=== PATIENT | male | born 1970 | race Caucasian/White ===

== ENCOUNTER 2017-01-01 19:14 | Emergency (ER) | payer MEDICARE, MEDICAID ==
[~2017-01-01] VITALS: Ht 175.3 cm; Wt 117.9 kg
[~2017-01-01 19:14] MED LIST: AMLO10TA2 PO; ASP81EC PO; CLON0.1T PO; LOSA100T27 PO; METF-370 PO; METO-158 PO; NITR400A5 TL; SIMV-8 PO; TRIA75TA55 PO
[2017-01-01 19:52] LABS: Basophils # (auto) 0 uL; Basophils % (auto) 0.4 % (0.0-2.0); CONDITION Y; Eosinophils # (auto) 0.4 uL; Eosinophils % (auto) 4.1 % (0.0-7.0); Hematocrit 36.4 % (41.0-53.0); Hemoglobin 12.2 g/dL (13.5-17.5); Lymphocytes % (auto) 22.6 % (10.0-50.0); Mean Corpuscular Hgb Conc. 33.5 g/dL (32.0-36.0); Mean Corpuscular Volume 86.3 fL (80.0-100.0); Mean Platelet Volume 8.1 fL (7.4-10.4); Monocytes # (auto) 0.8 uL; Monocytes % (auto) 8.6 % (0.0-12.0); Neutrophils # (auto) 5.6 uL; Neutrophils % (auto) 64.3 % (37.0-80.0); Platelet Count (auto) 291 10^3/uL (140-450); Red Cell Distribution Width 17.2 % (11.6-16.0); White Blood Cell 8.7 10^3/uL (4.4-10.8)
[2017-01-01 20:19] LABS: Albumin 3.4 g/dL (3.4-5.0); Alkaline Phosphatase 73 U/L (45-117); Anion Gap 6 (5-15); Aspartate Aminotransferase 17 U/L (15-37); BUN/Creatinine Ratio 16.7; Bilirubin, Total 0.2 mg/dL (0.2-1.0); Blood Urea Nitrogen 14 mg/dL (7-18); Calcium 8.8 mg/dL (8.5-10.1); Carbon Dioxide 26 mmol/L (21-32); Chloride 111 mmol/L (98-107); GFR African American 126 mL/min; GFR Non-African American 104 mL/min; Glucose 128 mg/dL (74-106); Potassium 3.3 mmol/L (3.5-5.1); Sodium 143 mmol/L (136-145); Total Protein 7.4 g/dL (6.4-8.2)
[2017-01-02 05:31] VITALS: BP 153/92
== END 2017-01-02 06:13 | disposition home or self-care (01) ==
LOC: EDUNIT# 19:14 → ER 19:19
DX: G40.909 Epilepsy, unspecified, not intractable, without status epilepticus (principal); I25.10 Atherosclerotic heart disease of native coronary artery without angina pectoris; I50.9 Heart failure, unspecified; E11.9 Type 2 diabetes mellitus without complications; E78.5 Hyperlipidemia, unspecified; I11.0 Hypertensive heart disease with heart failure; F17.210 Nicotine dependence, cigarettes, uncomplicated; E87.6 Hypokalemia; F19.20 Other psychoactive substance dependence, uncomplicated; Z87.442 Personal history of urinary calculi
CPT/HCPCS: 36415; 70450; 80053; 80307; 80320; 83735; 85025

== ENCOUNTER 2017-02-06 19:23 | Emergency (ER) | payer MEDICARE, MEDICAID ==
[~2017-02-06] VITALS: Ht 182.9 cm; Wt 108.9 kg
[~2017-02-06 19:23] MED LIST changes: +CITA-77 PO; +KEP500T PO
[2017-02-06] MEDS ORDERED: ACETAMINOPHEN 325 MG TAB PO ONE (20:45)
[2017-02-06 20:59] LABS: Basophils # (auto) 0 uL; Basophils % (auto) 0.4 % (0.0-2.0); CONDITION Y; Eosinophils # (auto) 0.3 uL; Hematocrit 39.3 % (41.0-53.0); Hemoglobin 12.9 g/dL (13.5-17.5); Lymphocytes # (auto) 1.8 uL; Lymphocytes % (auto) 23.8 % (10.0-50.0); Mean Corpuscular Hemoglobin 28.9 pg (28.0-32.0); Mean Corpuscular Volume 87.6 fL (80.0-100.0); Mean Platelet Volume 8.1 fL (7.4-10.4); Monocytes # (auto) 0.8 uL; Monocytes % (auto) 10.8 % (0.0-12.0); Neutrophils # (auto) 4.7 uL; Platelet Count (auto) 285 10^3/uL (140-450); Red Cell Distribution Width 13.8 % (11.6-16.0); White Blood Cell 7.6 10^3/uL (4.4-10.8)
[2017-02-06 21:18] LABS: Albumin 3.4 g/dL (3.4-5.0); BUN/Creatinine Ratio 12.3; Calcium 8.8 mg/dL (8.5-10.1); Potassium 3.7 mmol/L (3.5-5.1)
[2017-02-06 21:21] LABS: Bilirubin, Total 0.3 mg/dL (0.2-1.0); Total Protein 7.2 g/dL (6.4-8.2)
[2017-02-06 23:02] VITALS: BP 132/88
== END 2017-02-06 23:00 | disposition home or self-care (01) ==
LOC: EDBD 19:23 → ER 19:24
DX: S00.03XA Contusion of scalp, initial encounter (principal); I25.10 Atherosclerotic heart disease of native coronary artery without angina pectoris; I11.0 Hypertensive heart disease with heart failure; I50.9 Heart failure, unspecified; F17.210 Nicotine dependence, cigarettes, uncomplicated; Z86.73 Personal history of transient ischemic attack (TIA), and cerebral infarction without residual deficits; Z87.442 Personal history of urinary calculi; Z79.82 Long term (current) use of aspirin; Z79.899 Other long term (current) drug therapy; Z88.8 Allergy status to other drugs, medicaments and biological substances; Z88.6 Allergy status to analgesic agent; W07.XXXA Fall from chair, initial encounter; Y93.89 Activity, other specified; Y99.8 Other external cause status; Y92.89 Other specified places as the place of occurrence of the external cause
CPT/HCPCS: 36415; 70450; 80053; 85025; 93005

== ENCOUNTER 2017-05-05 21:21 | Emergency (ER) | payer MEDICARE, MEDICAID ==
[~2017-05-05] VITALS: Ht 182.9 cm; Wt 95.3 kg
[2017-05-05] MEDS ORDERED: SODIUM CHLORIDE 0.9% 1,000 ML IV ONE (21:55)
[2017-05-05] MEDS ORDERED: LORazepam 2MG/ML-1ML VIAL IV ONE (22:00)
[2017-05-05 22:28] LABS: Basophils # (auto) 0 uL; Basophils % (auto) 0.4 % (0.0-2.0); Eosinophils # (auto) 0.2 uL; Eosinophils % (auto) 3.1 % (0.0-7.0); Hematocrit 39.4 % (41.0-53.0); Hemoglobin 13.2 g/dL (13.5-17.5); Lymphocytes # (auto) 2.2 uL; Lymphocytes % (auto) 28.7 % (10.0-50.0); Mean Corpuscular Hemoglobin 28.9 pg (28.0-32.0); Mean Corpuscular Hgb Conc. 33.5 g/dL (32.0-36.0); Mean Corpuscular Volume 86.3 fL (80.0-100.0); Mean Platelet Volume 8.6 fL (6.9-10.8); Monocytes # (auto) 0.9 uL; Neutrophils # (auto) 4.4 uL; Neutrophils % (auto) 56.8 % (37.0-80.0); Nucleated Red Blood Cells % 0.2 %; Platelet Count (auto) 214 10^3/uL (140-450); Red Cell Distribution Width 15.7 % (11.8-14.3); White Blood Cell 7.7 10^3/uL (4.4-10.8)
[2017-05-05 22:43] LABS: INR 1.32 (0.9-1.15); Partial Thromboplastin Time 28.4 sec (22.64-33.71); Prothrombin Time 14.4 sec (9.37-12.3)
[2017-05-05 22:48] LABS: Chloride 111 mmol/L (98-107); Potassium 3.4 mmol/L (3.5-5.1); Sodium 143 mmol/L (136-145)
[2017-05-05 22:51] LABS: Albumin 3.3 g/dL (3.4-5.0); Anion Gap 8 (5-15); BUN/Creatinine Ratio 17.7; Blood Urea Nitrogen 22 mg/dL (7-18); Calcium 8.4 mg/dL (8.5-10.1); Carbon Dioxide 24 mmol/L (21-32); GFR African American 80 mL/min; GFR Non-African American 66 mL/min; Glucose 109 mg/dL (74-106); Magnesium 2.1 mg/dL (1.6-2.6)
[2017-05-05 22:59] LABS: Alkaline Phosphatase 65 U/L (45-117); Aspartate Aminotransferase 13 U/L (15-37); Bilirubin, Total 0.3 mg/dL (0.2-1.0); Total Protein 6.9 g/dL (6.4-8.2)
[2017-05-06 00:37] LABS: Urine Bilirubin Negative (Negative); Urine Blood TRACE /uL (Negative); Urine Color Yellow (Yellow); Urine Glucose Normal (Normal); Urine Ketone Negative (Negative); Urine Nitrite Negative (Negative); Urine RBC 2 /hpf (0 - 3); Urine Urobilinogen Normal (Negative); Urine pH 5.5 (5.0-8.0)
[2017-05-06 01:54] VITALS: BP 144/91
[2017-05-06] MEDS ORDERED: cefTRIAXone 1GM/50ML D5W 50 ML IV ONE ×2 (02:05→02:15)
== END 2017-05-06 02:57 | disposition home or self-care (01) ==
LOC: EDBD 21:21 → ER 21:23
DX: F09 Unspecified mental disorder due to known physiological condition (principal); E86.0 Dehydration; N39.0 Urinary tract infection, site not specified; I25.10 Atherosclerotic heart disease of native coronary artery without angina pectoris; I11.0 Hypertensive heart disease with heart failure; I50.9 Heart failure, unspecified; E11.9 Type 2 diabetes mellitus without complications; E78.5 Hyperlipidemia, unspecified; F17.210 Nicotine dependence, cigarettes, uncomplicated; Z87.442 Personal history of urinary calculi; Z90.49 Acquired absence of other specified parts of digestive tract
CPT/HCPCS: 36415; 70450; 71010; 80053; 80307; 80320; 81001; 83735; 84484; 85025; 85610; 85730; 93005; 94761; 96361; 96365; 96375; 99285; J0696; J7030

== ENCOUNTER 2019-02-03 15:07 | Emergency (ER) | payer MEDICARE, MEDICAID ==
[~2019-02-03] VITALS: Ht 177.8 cm; Wt 108.9 kg
[~2019-02-03 15:07] MED LIST changes: +AMLO10TA13 PO; -AMLO10TA2 PO; +LOSA-39 PO; -LOSA100T27 PO
[2019-02-03] MEDS ORDERED: methylPREDNISolone SOD SUCC 125 MG/2 ML VL IV ONE (16:15)
[2019-02-03 16:50] VITALS: BP 130/75
[2019-02-03 17:24] LABS: INR 1.82 (0.9-1.15)
== END 2019-02-03 17:00 | disposition home or self-care (01) ==
LOC: EDBD 15:07 → ER 15:07
DX: T63.441A Toxic effect of venom of bees, accidental (unintentional), initial encounter (principal); L29.9 Pruritus, unspecified; I25.10 Atherosclerotic heart disease of native coronary artery without angina pectoris; I11.0 Hypertensive heart disease with heart failure; I50.9 Heart failure, unspecified; Z87.442 Personal history of urinary calculi; E11.9 Type 2 diabetes mellitus without complications; E78.5 Hyperlipidemia, unspecified; Z93.1 Gastrostomy status; Z93.0 Tracheostomy status; F17.210 Nicotine dependence, cigarettes, uncomplicated; Z79.899 Other long term (current) drug therapy; Z79.82 Long term (current) use of aspirin; Z88.8 Allergy status to other drugs, medicaments and biological substances; Z91.030 Bee allergy status; Y92.89 Other specified places as the place of occurrence of the external cause
CPT/HCPCS: 93005; 96374; 99283; J2930

== ENCOUNTER 2019-07-12 21:51 | Emergency (ER) | payer MEDICARE, MEDICAID ==
[~2019-07-12] VITALS: Ht 177.8 cm; Wt 136.1 kg
[2019-07-12 23:44] LABS: Basophils # (auto) 0.1 uL; Basophils % (auto) 0.7 % (0.0-2.0); Eosinophils # (auto) 0.3 uL; Lymphocytes # (auto) 2.2 uL; Monocytes # (auto) 0.7 uL; Neutrophils # (auto) 4.1 uL; Red Blood Cells 5.01 10^6/uL (4.5-5.90); White Blood Cell 7.3 10^3/uL (4.4-10.8)
[2019-07-12 23:46] LABS: Eosinophils % (auto) 4.6 % (0.0-7.0); Hematocrit 37.8 % (41.0-53.0); Hemoglobin 12.1 g/dL (13.5-17.5); Lymphocytes % (auto) 29.6 % (10.0-50.0); Mean Corpuscular Hemoglobin 24.2 pg (28.0-32.0); Mean Corpuscular Volume 75.5 fL (80.0-100.0); Neutrophils % (auto) 56.1 % (37.0-80.0); Platelet Count (auto) 235 10^3/uL (140-450)
[2019-07-12 23:58] LABS: INR 1.84 (0.9-1.15); Partial Thromboplastin Time 33.9 sec (23.64-32.05)
[2019-07-13 00:12] LABS: Alanine Aminotransferase 32 U/L (16-61); Albumin 3.7 g/dL (3.4-5.0); Anion Gap 9 (5-15); Aspartate Aminotransferase 15 U/L (15-37); BUN/Creatinine Ratio 13.1; Blood Alcohol < 3.0 mg/dL (0-5); Blood Urea Nitrogen 16 mg/dL (7-18); Calcium 8.1 mg/dL (8.5-10.1); Carbon Dioxide 23 mmol/L (21-32); Chloride 111 mmol/L (98-107); GFR African American 81 mL/min; GFR Non-African American 67 mL/min; Glucose 142 mg/dL (74-106); Potassium 3.4 mmol/L (3.5-5.1); Sodium 143 mmol/L (136-145)
[2019-07-13 00:17] LABS: Alkaline Phosphatase 100 U/L (45-117); Bilirubin, Total 0.3 mg/dL (0.2-1.0); Total Protein 7.9 g/dL (6.4-8.2)
[2019-07-13 02:18] LABS: Amphetamine Screen, Urine NEGATIVE (NEGATIVE); Barbiturate Scree,Urine NEGATIVE (NEGATIVE); Benzodiazephine Screen, Urine NEGATIVE (NEGATIVE); Cannabinoid Screen, Urine NEGATIVE (NEGATIVE); Cocaine Screen, Urine NEGATIVE (NEGATIVE); Phencyclidine Screen, Urine NEGATIVE (NEGATIVE)
[2019-07-13 02:26] LABS: Alcohol, Urine < 3.0 mg/dL (0-5); Opiate Scree,Urine NEGATIVE (NEGATIVE); Urine Bacteria NONE SEEN /hpf (None Seen); Urine Blood 1+ /uL (Negative); Urine Specific Gravity 1.014 (1.001-1.035); Urine WBC 3 /hpf (0 - 3)
[2019-07-13 03:09] VITALS: BP 131/88
== END 2019-07-13 03:25 | disposition home or self-care (01) ==
LOC: ER 21:51 → EDBD 21:51 → ER 07-13 03:25
DX: R41.82 Altered mental status, unspecified (principal); F41.9 Anxiety disorder, unspecified; I11.0 Hypertensive heart disease with heart failure; I50.9 Heart failure, unspecified; F17.210 Nicotine dependence, cigarettes, uncomplicated; E11.9 Type 2 diabetes mellitus without complications; Z87.442 Personal history of urinary calculi; Z86.73 Personal history of transient ischemic attack (TIA), and cerebral infarction without residual deficits; Z91.030 Bee allergy status; Z91.09 Other allergy status, other than to drugs and biological substances; Z79.82 Long term (current) use of aspirin; Z79.899 Other long term (current) drug therapy
CPT/HCPCS: 36415; 70450; 71045; 80053; 80307; 80320; 81001; 83605; 84484; 85025; 85610; 85730; 87040; 87086; 87088; 87186

== ENCOUNTER 2019-11-30 15:25 | Inpatient (IN) | payer MEDICARE, MEDICAID ==
[~2019-11-30] VITALS: Ht 180.3 cm; Wt 118.3 kg
[~2019-11-30 15:25] MED LIST changes: -ASP81EC PO; +ASPI-394 PO
[2019-11-30] MEDS ORDERED: SODIUM CHLORIDE 0.9% 1,000 ML IVB ONE (15:53)
[2019-11-30 16:01] LABS: Eosinophils # (auto) 0.3 10 ^3/uL (0-0.8); Hemoglobin 12.1 g/dL (13.5-17.5); Monocytes # (auto) 0.7 10 ^3/uL (0-1.3); Nucleated Red Blood Cells % 0.1 %; Platelet Count (auto) 251 10^3/uL (140-450); White Blood Cell 7.9 10^3/uL (4.4-10.8)
[2019-11-30 16:02] LABS: Basophils # (auto) 0.1 10 ^3/uL (0-0.2); Basophils % (auto) 0.7 % (0.0-2.0); Eosinophils % (auto) 3.5 % (0.0-7.0); Lymphocytes # (auto) 1.8 10 ^3/uL (0.4-5.4); Mean Corpuscular Hemoglobin 23.9 pg (28.0-32.0); Mean Corpuscular Hgb Conc. 31.8 g/dL (32.0-36.0); Mean Corpuscular Volume 75.3 fL (80.0-100.0); Monocytes % (auto) 9.4 % (0.0-12.0); Neutrophils % (auto) 63.4 % (37.0-80.0); Red Blood Cells 5.05 10^6/uL (4.5-5.90); Red Cell Distribution Width 18.9 % (11.8-14.3)
[2019-11-30 16:14] LABS: Magnesium 2.3 mg/dL (1.6-2.6)
[2019-11-30 16:16] LABS: Albumin 3.6 g/dL (3.4-5.0); BUN/Creatinine Ratio 15.5; Calcium 8.6 mg/dL (8.5-10.1); Potassium 3.7 mmol/L (3.5-5.1)
[2019-11-30 16:19] LABS: Bilirubin, Total 0.4 mg/dL (0.2-1.0); Total Protein 7.3 g/dL (6.4-8.2)
[2019-11-30 16:24] LABS: INR 2.24 (0.9-1.15); Partial Thromboplastin Time 37.8 sec (23.64-32.05)
[2019-11-30] MEDS ORDERED: ONDANSETRON HCL 4 MG/2 ML VIAL IV PRN (21:15)
[2019-11-30] MEDS ORDERED: DEXTROSE (50%) 50ML SYRG IV PRN (21:15)
[2019-11-30] MEDS ORDERED: DOCUSATE SOD 100 MG CAP PO PRN (21:15)
[2019-11-30] MEDS ORDERED: ACETAMINOPHEN 325 MG TAB PO PRN (21:15)
[2019-11-30] MEDS: SODIUM CHLORIDE 0.9% 1,000 ML IV SCH (21:43)
--- NOTE | 2019-11-30 23:42 | NUR ---
MS admit from ER CANDICE DAVIES admitted to tele/MS after SBAR received. Patient oriented to Natalia Gómez, primary RN, unit, room, bed, and unit policies regarding patient care and visiting hours. Patient weighed by bedscale and encouraged to call if they need something. All questions and concerns addressed, patient verbalized understanding.
[2019-12-01] MEDS ORDERED: cloNIDine HCL 0.1 MG TAB PO PRN
[2019-12-01] MEDS: ACCU-CHEK COMFORT CURVE STRIP VI SCH ×5 (00:20→23:25)
[2019-12-01 01:25] LABS: Urine Bacteria NONE SEEN /hpf (None Seen); Urine Blood TRACE /uL (Negative); Urine Specific Gravity 1.013 (1.001-1.035); Urine WBC 1 /hpf (0 - 3)
--- NOTE | 2019-12-01 01:25 | NUR ---
Patient had a bowel movement, stool is hard with fresh blood, sample sent to lab for occult blood test.
[2019-12-01 05:00] VITALS: BP 142/94
[2019-12-01] MEDS: InsuLIN REG 1unit/0.01ml Soln (100units/ml) SC SCH ×5 (06:00→23:25)
[2019-12-01 06:53] LABS: Basophils # (auto) 0 10 ^3/uL (0-0.2); Basophils % (auto) 0.6 % (0.0-2.0); Eosinophils # (auto) 0.2 10 ^3/uL (0-0.8); Monocytes # (auto) 0.7 10 ^3/uL (0-1.3); Neutrophils # (auto) 4.6 10 ^3/uL (1.6-8.6); White Blood Cell 7.7 10^3/uL (4.4-10.8)
[2019-12-01 06:58] LABS: Eosinophils % (auto) 3.2 % (0.0-7.0); Hematocrit 36.8 % (41.0-53.0); Hemoglobin 11.8 g/dL (13.5-17.5); Lymphocytes # (auto) 2.1 10 ^3/uL (0.4-5.4); Lymphocytes % (auto) 27.3 % (10.0-50.0); Mean Corpuscular Hemoglobin 24.4 pg (28.0-32.0); Mean Corpuscular Hgb Conc. 32.2 g/dL (32.0-36.0); Mean Corpuscular Volume 75.8 fL (80.0-100.0); Neutrophils % (auto) 59.9 % (37.0-80.0); Platelet Count (auto) 264 10^3/uL (140-450); Red Blood Cells 4.85 10^6/uL (4.5-5.90); Red Cell Distribution Width 18.5 % (11.8-14.3)
[2019-12-01 07:15] LABS: Potassium 3.5 mmol/L (3.5-5.1)
[2019-12-01 07:36] LABS: Calcium 8.4 mg/dL (8.5-10.1)
[2019-12-01 09:00] VITALS: BP 136/82
[2019-12-01] MEDS: CITALOPRAM HYDROBR 20 MG TAB PO SCH (09:45)
[2019-12-01] MEDS: LOSARTAN POTASSIUM 50 MG TAB PO SCH (09:46)
[2019-12-01] MEDS: levETIRAcetam 500 MG TAB PO SCH ×2 (09:46→22:19)
[2019-12-01] MEDS: METOPROLOL TARTRATE 50 MG TAB PO SCH ×2 (09:47→22:20)
[2019-12-01] MEDS: TRIAMTERENE/HCTZ 75/50MG TABLET PO SCH (09:48)
[2019-12-01] MEDS: amLODIPine BESYLATE 5 MG TAB PO SCH (09:48)
[2019-12-01 12:36] VITALS: BP 141/96
--- NOTE | 2019-12-01 13:23 | NUR ---
Per dr blood patient ok to eat, [facility] SANCHEZ will see patient.
--- NOTE | 2019-12-01 13:23 | NUR ---
per Dr blood at patient's bedside if patient is cleared to go home by [facility] (GI) to follow up outpatient then call Dr. Blood.
--- NOTE | 2019-12-01 13:36 | NUR ---
Patient family member mentioned patient was on coumadin, however it is not on his med rec given by [facility] his sister, according to patients extended med history he picked up coumadin 3mg on september 11 2019. Contacted number on file to clarify, no answer and mailbox full at this time.
[2019-12-01] MEDS: SODIUM CHLORIDE 0.9% 1,000 ML IV SCH (13:42)
--- NOTE | 2019-12-01 15:09 | NUR ---
Called family to get dosage and frequency on coumadin, still no answer, voicemail box full.
--- NOTE | 2019-12-01 15:45 | NUR ---
Patient refused IV fluids. Patient stated he did not want to be connected to the machine at this time.
--- NOTE | 2019-12-01 15:52 | NUR ---
family called, password given to me by family, family was able to give dose on coumadin 6mg daily, patients medications are monitored by Chance boss
[2019-12-01] MEDS ORDERED: WARF6TAB2 PO (15:53)
[2019-12-01 16:47] VITALS: BP 134/89
--- NOTE | 2019-12-01 18:33 | NUR ---
Dr hendricks was in to see patient and discuss colonoscopy. Per Dr hendricks she spoke with patient and patient is familiar with the procedure/prep and Dr. Hendricks will do on monday.
--- NOTE | 2019-12-01 19:25 | NUR ---
Opening Shift Note Received report from Akiko LEWIS. Assumed care of patient, awake and alert. No S/S of distress/SOB or pain. Instructed on POC and to call for assist PRN, will continue to monitor for changes Q1hr and PRN.
[2019-12-01 22:00] VITALS: BP 126/86
[2019-12-01] MEDS: ATORVASTATIN 20 MG TAB PO SCH (22:19)
[2019-12-01] MEDS: HYDROcodone-ACET 5/325MG TAB PO PRN (22:19)
[2019-12-02 05:00] VITALS: BP_SYST 110; BP_SYST 139; BP_DIAS 59; BP_DIAS 88
[2019-12-02] MEDS: HYDROcodone-ACET 5/325MG TAB PO PRN ×2 (05:26→16:24)
[2019-12-02] MEDS: InsuLIN REG 1unit/0.01ml Soln (100units/ml) SC SCH ×4 (05:57→23:30)
[2019-12-02] MEDS: ACCU-CHEK COMFORT CURVE STRIP VI SCH ×4 (05:57→23:31)
[2019-12-02] MEDS: SODIUM CHLORIDE 0.9% 1,000 ML IV SCH ×2 (06:30→23:20)
[2019-12-02 09:30] VITALS: BP 123/87
[2019-12-02] MEDS: METOPROLOL TARTRATE 50 MG TAB PO SCH ×2 (10:00→21:47)
[2019-12-02] MEDS: levETIRAcetam 500 MG TAB PO SCH ×2 (10:36→21:46)
[2019-12-02] MEDS: LOSARTAN POTASSIUM 50 MG TAB PO SCH (10:36)
[2019-12-02] MEDS: CITALOPRAM HYDROBR 20 MG TAB PO SCH (10:36)
[2019-12-02] MEDS: amLODIPine BESYLATE 5 MG TAB PO SCH (10:36)
[2019-12-02] MEDS: TRIAMTERENE/HCTZ 75/50MG TABLET PO SCH (11:27)
--- NOTE | 2019-12-02 11:42 | NUR ---
ORDERS RECEIVED FOR COLONOSCOPY ON 12-03-[address] PALACIOS
[2019-12-02] MEDS ORDERED: GOLYTELY 4L KIT PO ONE (12:00)
[2019-12-02 12:57] VITALS: BP 144/91
[2019-12-02 13:10] LABS: Basophils # (auto) 0 10 ^3/uL (0-0.2); Eosinophils # (auto) 0.3 10 ^3/uL (0-0.8); Monocytes # (auto) 0.7 10 ^3/uL (0-1.3); White Blood Cell 7.9 10^3/uL (4.4-10.8)
[2019-12-02 13:12] LABS: Basophils % (auto) 0.5 % (0.0-2.0); Eosinophils % (auto) 3.4 % (0.0-7.0); Hematocrit 39.1 % (41.0-53.0); Hemoglobin 12.3 g/dL (13.5-17.5); Lymphocytes # (auto) 2.5 10 ^3/uL (0.4-5.4); Lymphocytes % (auto) 31.5 % (10.0-50.0); Mean Corpuscular Hgb Conc. 31.5 g/dL (32.0-36.0); Monocytes % (auto) 9.1 % (0.0-12.0); Neutrophils # (auto) 4.4 10 ^3/uL (1.6-8.6); Neutrophils % (auto) 55.5 % (37.0-80.0); Nucleated Red Blood Cells % 0.1 %; Platelet Count (auto) 277 10^3/uL (140-450); Red Blood Cells 5.14 10^6/uL (4.5-5.90); Red Cell Distribution Width 18.9 % (11.8-14.3)
--- NOTE | 2019-12-02 13:20 | NUR ---
BOWEL PREP INITIATED. BEDSIDE COMMODE IN PLACE. BED IN LOWEST POSITION, CALL LIGHT WITHIN REACH. WILL CONTINUE TO MONITOR.
[2019-12-02 13:25] LABS: Albumin 3.4 g/dL (3.4-5.0); BUN/Creatinine Ratio 12.3; Calcium 8.4 mg/dL (8.5-10.1); Potassium 3.6 mmol/L (3.5-5.1)
[2019-12-02 13:27] LABS: Bilirubin, Total 0.5 mg/dL (0.2-1.0); Total Protein 7.3 g/dL (6.4-8.2)
[2019-12-02 13:28] LABS: INR 1.76 (0.9-1.15)
[2019-12-02 16:51] VITALS: BP 127/95
--- NOTE | 2019-12-02 19:45 | NUR ---
assumed care, pt. awake, having his golytely slowly, as per pt. he has bm 5x, advised pt. npo after mn, no c/o pain, no sob
[2019-12-02] MEDS: ATORVASTATIN 20 MG TAB PO SCH (21:46)
[2019-12-02 22:20] VITALS: BP 127/80
[2019-12-03] MEDS: HYDROcodone-ACET 5/325MG TAB PO PRN ×2 (04:03→11:55)
[2019-12-03 05:00] VITALS: BP 133/90
[2019-12-03 05:34] LABS: Basophils # (auto) 0 10 ^3/uL (0-0.2); Eosinophils # (auto) 0.3 10 ^3/uL (0-0.8); Eosinophils % (auto) 3.4 % (0.0-7.0); Hematocrit 38.6 % (41.0-53.0); Hemoglobin 12.4 g/dL (13.5-17.5); Mean Corpuscular Hgb Conc. 32.2 g/dL (32.0-36.0); Monocytes # (auto) 0.7 10 ^3/uL (0-1.3); Nucleated Red Blood Cells % 0.1 %
[2019-12-03 05:36] LABS: Basophils % (auto) 0.5 % (0.0-2.0); Lymphocytes # (auto) 1.8 10 ^3/uL (0.4-5.4); Lymphocytes % (auto) 21.7 % (10.0-50.0); Mean Corpuscular Hemoglobin 24.3 pg (28.0-32.0); Mean Corpuscular Volume 75.6 fL (80.0-100.0); Monocytes % (auto) 8.5 % (0.0-12.0); Neutrophils # (auto) 5.4 10 ^3/uL (1.6-8.6); Neutrophils % (auto) 65.9 % (37.0-80.0); Platelet Count (auto) 269 10^3/uL (140-450); Red Blood Cells 5.11 10^6/uL (4.5-5.90); Red Cell Distribution Width 18.3 % (11.8-14.3); White Blood Cell 8.2 10^3/uL (4.4-10.8)
[2019-12-03] MEDS: InsuLIN REG 1unit/0.01ml Soln (100units/ml) SC SCH ×4 (05:38→23:21)
[2019-12-03] MEDS: ACCU-CHEK COMFORT CURVE STRIP VI SCH ×4 (05:38→23:22)
--- NOTE | 2019-12-03 05:46 | NUR ---
v/s stable, had bm several times, watery and clear, no c/o pain, not in distress.
[2019-12-03] MEDS ORDERED: MAGNESIUM CITRATE SOLUTION 300 ML BTL PO ONE (06:00)
[2019-12-03 08:44] VITALS: BP 143/95
[2019-12-03 09:04] LABS: INR 1.4 (0.9-1.15); Partial Thromboplastin Time 31.5 sec (23.64-32.05)
[2019-12-03] MEDS: METOPROLOL TARTRATE 50 MG TAB PO SCH ×2 (10:00→21:25)
[2019-12-03] MEDS: TRIAMTERENE/HCTZ 75/50MG TABLET PO SCH (10:00)
[2019-12-03] MEDS: levETIRAcetam 500 MG TAB PO SCH ×2 (10:00→21:24)
[2019-12-03] MEDS: amLODIPine BESYLATE 5 MG TAB PO SCH (10:00)
[2019-12-03] MEDS: CITALOPRAM HYDROBR 20 MG TAB PO SCH (10:00)
[2019-12-03] MEDS: LOSARTAN POTASSIUM 50 MG TAB PO SCH (10:00)
--- NOTE | 2019-12-03 10:45 | NUR ---
Dr. Marianne Hairston is at bed side discussing POC with patient. Patient verbalizes understanding.
--- NOTE | 2019-12-03 10:52 | NUR ---
Est energy needs [id number] kcal (18-20 kcal/kg BW 98.5kg) Est protein needs 78-94g (1-1.2g/kg BW 98.5kg) Will reassess prn Addendum: 12/03/19 at [address] Amended: Links added.
[2019-12-03 13:00] VITALS: BP 125/74
[2019-12-03] MEDS ORDERED: SODIUM CHLORIDE LOCK 10 ML ONE (13:32)
[2019-12-03] MEDS ORDERED: diphenhdrAMINE HCL 50 MG/1 ML VL ONE (13:32)
--- NOTE | 2019-12-03 14:35 | NUR ---
Patient transported to preop via bed, no s/s of pain/distress. Patient received by Tammy LEWIS
[2019-12-03] MEDS: MIDAZOLAM HCL 5 MG/ML-1ML VIAL ONE ×3 (15:35→15:50)
[2019-12-03] MEDS: fentaNYL CITRATE 100 MCG/2 ML VL ONE ×3 (15:35→15:45)
[2019-12-03] MEDS: SODIUM CHLORIDE 0.9% 1,000 ML IV SCH (15:42)
--- NOTE | 2019-12-03 19:30 | NUR ---
assumed care, pt. awake, eating his dinner, no c/o pain, no sob.
[2019-12-03] MEDS: ATORVASTATIN 20 MG TAB PO SCH (21:24)
[2019-12-03 22:00] VITALS: BP 103/61
[2019-12-04] MEDS: HYDROcodone-ACET 5/325MG TAB PO PRN ×2 (00:16→05:11)
[2019-12-04 05:00] VITALS: BP 137/90
[2019-12-04] MEDS: ACCU-CHEK COMFORT CURVE STRIP VI SCH ×2 (05:13→11:32)
[2019-12-04] MEDS: InsuLIN REG 1unit/0.01ml Soln (100units/ml) SC SCH ×2 (05:13→11:33)
[2019-12-04] MEDS: SODIUM CHLORIDE 0.9% 1,000 ML IV SCH (08:22)
[2019-12-04 09:00] VITALS: BP 132/84
[2019-12-04] MEDS: CITALOPRAM HYDROBR 20 MG TAB PO SCH (09:22)
[2019-12-04] MEDS: levETIRAcetam 500 MG TAB PO SCH (09:23)
[2019-12-04] MEDS: LOSARTAN POTASSIUM 50 MG TAB PO SCH (09:23)
[2019-12-04] MEDS: METOPROLOL TARTRATE 50 MG TAB PO SCH (09:23)
[2019-12-04] MEDS: TRIAMTERENE/HCTZ 75/50MG TABLET PO SCH (09:24)
[2019-12-04] MEDS: amLODIPine BESYLATE 5 MG TAB PO SCH (09:25)
[2019-12-04 10:55] VITALS: BP 132/84
--- NOTE | 2019-12-04 12:52 | NUR ---
Discharge instructions given to caregiver (sister) Denisa as ordered. Encourage to follow up with PMD as instructed. All questions and concerns addressed. Patient/ Denisa verbalized understanding. Medication reconciliation form completed and copy given to patient. IV removed with catheter intact, pressure dressing applied. Patient taken to vehicle via wheelchair with all personal belongings, accompanied by staff. No distress noted at time of departure.
== END 2019-12-04 12:40 | disposition home or self-care (01) | DRG 378 ==
LOC: EDBD 15:25 → ER 15:25 → OVERFLOW 15:26 → WEST WING 23:48
PROVIDERS: ADMIT Hospitalist; ATTEND Family Medicine
PROC: 0DBP8ZX Excision of Rectum, Via Natural or Artificial Opening Endoscopic, Diagnostic (ICD-10-PCS; principal; 2019-12-03 15:19)
DX: K92.2 Gastrointestinal hemorrhage, unspecified (principal); D68.9 Coagulation defect, unspecified; K92.1 Melena; R62.50 Unspecified lack of expected normal physiological development in childhood; D64.9 Anemia, unspecified; E78.00 Pure hypercholesterolemia, unspecified; K64.8 Other hemorrhoids; E11.9 Type 2 diabetes mellitus without complications; F17.210 Nicotine dependence, cigarettes, uncomplicated; I25.10 Atherosclerotic heart disease of native coronary artery without angina pectoris; F41.9 Anxiety disorder, unspecified; E78.5 Hyperlipidemia, unspecified; Z86.73 Personal history of transient ischemic attack (TIA), and cerebral infarction without residual deficits; Z55.8 Other problems related to education and literacy; Z88.8 Allergy status to other drugs, medicaments and biological substances; Z79.899 Other long term (current) drug therapy; Z83.3 Family history of diabetes mellitus; Z79.82 Long term (current) use of aspirin; Z90.89 Acquired absence of other organs; Z82.49 Family history of ischemic heart disease and other diseases of the circulatory system; Z82.3 Family history of stroke; D12.8 Benign neoplasm of rectum
CPT/HCPCS: 36415; 45380; 71045; 74176; 80048; 80053; 81001; 82150; 82270; 82962; 83036; 83690; 83735; 85025; 85610; 85730; 93005; G0378; J1815; J2250

== ENCOUNTER 2020-03-31 22:20 | Emergency (ER) | payer MEDICARE, MEDICAID ==
[~2020-03-31] VITALS: Ht 185.4 cm; Wt 113.4 kg
[~2020-03-31 22:20] MED LIST changes: +WARF6TAB2 PO
[2020-03-31 23:35] LABS: Basophils # (auto) 0.1 10 ^3/uL (0-0.2); Basophils % (auto) 0.7 % (0.0-2.0); Eosinophils # (auto) 0.3 10 ^3/uL (0-0.8); Eosinophils % (auto) 3.9 % (0.0-7.0); Hematocrit 35.7 % (41.0-53.0); Hemoglobin 11.1 g/dL (13.5-17.5); Lymphocytes # (auto) 2.1 10 ^3/uL (0.4-5.4); Lymphocytes % (auto) 28.9 % (10.0-50.0); Mean Corpuscular Hgb Conc. 31.2 g/dL (32.0-36.0); Mean Corpuscular Volume 73.7 fL (80.0-100.0); Monocytes # (auto) 0.7 10 ^3/uL (0-1.3); Monocytes % (auto) 9.6 % (0.0-12.0); Neutrophils # (auto) 4.1 10 ^3/uL (1.6-8.6); Neutrophils % (auto) 56.9 % (37.0-80.0); Nucleated Red Blood Cells % 0.1 %; Platelet Count (auto) 316 10^3/uL (140-450); Red Blood Cells 4.85 10^6/uL (4.5-5.90); Red Cell Distribution Width 17.8 % (11.8-14.3); White Blood Cell 7.3 10^3/uL (4.4-10.8)
[2020-03-31 23:54] LABS: Albumin 3.6 g/dL (3.4-5.0); BUN/Creatinine Ratio 14.4; Calcium 9.4 mg/dL (8.5-10.1); Magnesium 2.4 mg/dL (1.6-2.6); Potassium 3.7 mmol/L (3.5-5.1)
[2020-03-31 23:57] LABS: Bilirubin, Total 0.3 mg/dL (0.2-1.0); Total Protein 7.4 g/dL (6.4-8.2)
[2020-04-01] MEDS ORDERED: MORPHINE SULFATE 4 MG/ML SYR/VIAL IV ONE ×2 (00:30→03:15)
[2020-04-01] MEDS ORDERED: ONDANSETRON HCL 4 MG/2 ML VIAL IV ONE (00:30)
[2020-04-01 06:00] VITALS: BP 130/87
== END 2020-04-01 06:09 | disposition home or self-care (01) ==
LOC: EDBD 22:20 → ER 22:27
DX: R10.9 Unspecified abdominal pain (principal); E11.9 Type 2 diabetes mellitus without complications; I10 Essential (primary) hypertension; E78.5 Hyperlipidemia, unspecified; I25.10 Atherosclerotic heart disease of native coronary artery without angina pectoris; F17.210 Nicotine dependence, cigarettes, uncomplicated
CPT/HCPCS: 36415; 74176; 80053; 82150; 83690; 83735; 85025; 96374; 96375; 96376; 99285; J2270; J2405

== ENCOUNTER 2020-11-09 10:23 | Inpatient (IN) | payer MEDICARE, MEDICAID ==
[~2020-11-09] VITALS: Ht 175.3 cm; Wt 124.6 kg
[~2020-11-09 10:23] MED LIST changes: +AMLO-496 PO; -AMLO10TA13 PO
[2020-11-09 11:02] LABS: Eosinophils # (auto) 0 10 ^3/uL (0-0.8); Hemoglobin 11.9 g/dL (13.5-17.5); Lymphocytes # (auto) 1.5 10 ^3/uL (0.4-5.4); Mean Corpuscular Hgb Conc. 31.3 g/dL (32.0-36.0); Monocytes # (auto) 0.8 10 ^3/uL (0-1.3); Monocytes % (auto) 9.4 % (0.0-12.0); Neutrophils # (auto) 6.4 10 ^3/uL (1.6-8.6); Red Blood Cells 5.39 10^6/uL (4.5-5.90); White Blood Cell 8.8 10^3/uL (4.4-10.8)
[2020-11-09 11:04] LABS: Basophils # (auto) 0.1 10 ^3/uL (0-0.2); Basophils % (auto) 0.7 % (0.0-2.0); Eosinophils % (auto) 0.4 % (0.0-7.0); Hematocrit 38.2 % (41.0-53.0); Lymphocytes % (auto) 17.4 % (10.0-50.0); Mean Corpuscular Hemoglobin 22.2 pg (28.0-32.0); Mean Corpuscular Volume 70.9 fL (80.0-100.0); Neutrophils % (auto) 72.1 % (37.0-80.0); Nucleated Red Blood Cells % 0.1 %; Platelet Count (auto) 294 10^3/uL (140-450); Red Cell Distribution Width 19.9 % (11.8-14.3)
[2020-11-09 11:17] LABS: INR 1.69 (0.9-1.15); Partial Thromboplastin Time 31.2 sec (23.0-31.2)
[2020-11-09 11:18] LABS: Albumin 3.9 g/dL (3.4-5.0); Calcium 9.9 mg/dL (8.5-10.1); Magnesium 2.5 mg/dL (1.6-2.6); Potassium 3.3 mmol/L (3.5-5.1)
[2020-11-09 11:24] LABS: BUN/Creatinine Ratio 11.4; Bilirubin, Total 0.5 mg/dL (0.2-1.0); Total Protein 7.9 g/dL (6.4-8.2)
[2020-11-09] MEDS ORDERED: ONDANSETRON HCL 4 MG/2 ML VIAL IV PRN (13:30)
[2020-11-09] MEDS ORDERED: HYDROcodone-ACET 5/325MG TAB PO PRN (13:30)
[2020-11-09] MEDS ORDERED: hydrALAZINE HCL 20 MG/ML VL IV PRN (13:30)
[2020-11-09] MEDS ORDERED: NITROGLYCERIN 0.4 MG SL TAB SL PRN (13:30)
[2020-11-09] MEDS ORDERED: MORPHINE SULF INJ 2 MG/ML SYRINGE 1ML IV PRN ×2 (13:30)
[2020-11-09] MEDS ORDERED: ACETAMINOPHEN 500 MG TAB PO PRN (13:30)
[2020-11-09] MEDS ORDERED: ASPirin-EC 81 mg tab PO ONE (14:00)
[2020-11-09] MEDS ORDERED: LOSARTAN POTASSIUM 50 MG TAB PO ONE (14:00)
[2020-11-09] MEDS ORDERED: METOPROLOL TARTRATE 50 MG TAB PO ONE (14:00)
[2020-11-09] MEDS ORDERED: amLODIPine BESYLATE 5 MG TAB PO ONE (14:00)
[2020-11-09] MEDS ORDERED: levETIRAcetam 500 MG TAB PO ONE (14:00)
[2020-11-09] MEDS ORDERED: POTASSIUM EFFERVESENT TAB 25 MEQ PO ONE (14:00)
[2020-11-09] MEDS ORDERED: DEXTROSE (50%) 50ML SYRG IV PRN (14:00)
[2020-11-09] MEDS ORDERED: CITALOPRAM HYDROBR 20 MG TAB PO ONE (14:00)
[2020-11-09] MEDS ORDERED: FAMOTIDINE 20 MG TAB PO ONE (14:00)
[2020-11-09 15:39] VITALS: BP 141/83
[2020-11-09 17:00] VITALS: BP 146/92
[2020-11-09] MEDS: ACCU-CHEK COMFORT CURVE STRIP VI SCH ×2 (17:59→22:15)
[2020-11-09] MEDS: InsuLIN REG 1unit/0.01ml Soln (100units/ml) SC SCH ×2 (18:00→22:00)
[2020-11-09] MEDS ORDERED: METR500T PO (18:13)
[2020-11-09] MEDS ORDERED: DOXY-332 PO (18:13)
[2020-11-09] MEDS ORDERED: LEVO500T31 PO (18:13)
[2020-11-09 22:00] VITALS: BP 147/95
[2020-11-09] MEDS: ATORVASTATIN 20 MG TAB PO SCH (22:14)
[2020-11-09] MEDS: levETIRAcetam 500 MG TAB PO SCH (22:14)
[2020-11-09] MEDS: METOPROLOL TARTRATE 50 MG TAB PO SCH (22:14)
[2020-11-10 05:00] VITALS: BP 147/91
[2020-11-10 05:38] LABS: Basophils # (auto) 0 10 ^3/uL (0-0.2); Basophils % (auto) 0.6 % (0.0-2.0); Eosinophils # (auto) 0.2 10 ^3/uL (0-0.8); Lymphocytes # (auto) 1.7 10 ^3/uL (0.4-5.4); Monocytes # (auto) 0.7 10 ^3/uL (0-1.3); Nucleated Red Blood Cells % 0.1 %
[2020-11-10 05:40] LABS: Eosinophils % (auto) 2.2 % (0.0-7.0); Hemoglobin 11.8 g/dL (13.5-17.5); Lymphocytes % (auto) 24.5 % (10.0-50.0); Mean Corpuscular Hemoglobin 22.9 pg (28.0-32.0); Mean Corpuscular Hgb Conc. 31.8 g/dL (32.0-36.0); Mean Corpuscular Volume 72.1 fL (80.0-100.0); Monocytes % (auto) 9.6 % (0.0-12.0); Neutrophils # (auto) 4.4 10 ^3/uL (1.6-8.6); Neutrophils % (auto) 63.1 % (37.0-80.0); Platelet Count (auto) 270 10^3/uL (140-450); Red Blood Cells 5.13 10^6/uL (4.5-5.90); Red Cell Distribution Width 19.8 % (11.8-14.3)
[2020-11-10 05:54] LABS: Potassium 3.1 mmol/L (3.5-5.1)
[2020-11-10 06:05] LABS: BUN/Creatinine Ratio 11.1; Calcium 8.8 mg/dL (8.5-10.1)
[2020-11-10] MEDS: ACCU-CHEK COMFORT CURVE STRIP VI SCH ×4 (06:28→21:58)
[2020-11-10] MEDS: InsuLIN REG 1unit/0.01ml Soln (100units/ml) SC SCH ×4 (06:28→22:12)
[2020-11-10 08:30] VITALS: BP 132/93
[2020-11-10] MEDS: CITALOPRAM HYDROBR 20 MG TAB PO SCH (09:39)
[2020-11-10] MEDS: LOSARTAN POTASSIUM 50 MG TAB PO SCH (09:39)
[2020-11-10] MEDS: levETIRAcetam 500 MG TAB PO SCH ×2 (09:39→21:57)
[2020-11-10] MEDS: ASPirin-EC 81 mg tab PO SCH (09:39)
[2020-11-10] MEDS: FAMOTIDINE 20 MG TAB PO SCH (09:40)
[2020-11-10] MEDS: amLODIPine BESYLATE 5 MG TAB PO SCH (09:40)
[2020-11-10] MEDS ORDERED: ADENOSINE 108 MG in GIVE UN-DILUTED 0 ML IV ONE (10:00)
[2020-11-10] MEDS: METOPROLOL TARTRATE 50 MG TAB PO SCH ×2 (10:00→21:58)
[2020-11-10 12:46] VITALS: BP 147/102
[2020-11-10] MEDS ORDERED: ATROPINE SULF 0.5 MG/5ML SYR ONE (13:03)
[2020-11-10] MEDS ORDERED: DOBUTamine 1000MCG/ML 250 ML IV ONE ×2 (13:04)
[2020-11-10] MEDS: POTASSIUM EFFERVESENT TAB 25 MEQ PO SCH (15:22)
[2020-11-10 17:04] VITALS: BP 138/87
[2020-11-10] MEDS: ATORVASTATIN 20 MG TAB PO SCH (21:57)
[2020-11-10 22:25] VITALS: BP 124/86
[2020-11-11 05:19] VITALS: BP 140/96
[2020-11-11 06:07] LABS: INR 1.44 (0.9-1.15)
[2020-11-11 06:28] LABS: BUN/Creatinine Ratio 12.1; Calcium 8.2 mg/dL (8.5-10.1); Magnesium 2.6 mg/dL (1.6-2.6)
[2020-11-11] MEDS: ACCU-CHEK COMFORT CURVE STRIP VI SCH ×4 (06:53→22:00)
[2020-11-11] MEDS: InsuLIN REG 1unit/0.01ml Soln (100units/ml) SC SCH ×4 (06:54→22:00)
[2020-11-11 09:00] VITALS: BP 149/90
[2020-11-11] MEDS: METOPROLOL TARTRATE 50 MG TAB PO SCH ×2 (10:00→22:00)
[2020-11-11] MEDS: LOSARTAN POTASSIUM 50 MG TAB PO SCH (10:13)
[2020-11-11] MEDS: CITALOPRAM HYDROBR 20 MG TAB PO SCH (10:13)
[2020-11-11] MEDS: levETIRAcetam 500 MG TAB PO SCH ×2 (10:14→22:00)
[2020-11-11] MEDS: ASPirin-EC 81 mg tab PO SCH (10:14)
[2020-11-11] MEDS: POTASSIUM EFFERVESENT TAB 25 MEQ PO SCH (10:14)
[2020-11-11] MEDS: FAMOTIDINE 20 MG TAB PO SCH (10:15)
[2020-11-11] MEDS: amLODIPine BESYLATE 5 MG TAB PO SCH (10:15)
[2020-11-11 13:00] VITALS: BP 137/72
[2020-11-11] MEDS ORDERED: POTASSIUM EFFERVESENT TAB 25 MEQ PO ONE (14:00)
[2020-11-11 16:45] VITALS: BP 127/85
[2020-11-11 20:00] VITALS: BP 128/72
[2020-11-11] MEDS ORDERED: LORazepam 2MG/ML-1ML VIAL IV PRN (20:00)
[2020-11-11 21:44] VITALS: BP 128/72
[2020-11-11] MEDS: ATORVASTATIN 20 MG TAB PO SCH (22:00)
[2020-11-12 04:48] VITALS: BP 148/91
[2020-11-12] MEDS: ACCU-CHEK COMFORT CURVE STRIP VI SCH ×2 (07:00→11:30)
[2020-11-12] MEDS: InsuLIN REG 1unit/0.01ml Soln (100units/ml) SC SCH ×2 (07:00→11:30)
[2020-11-12 09:00] VITALS: BP 154/99
[2020-11-12] MEDS: ASPirin-EC 81 mg tab PO SCH (09:12)
[2020-11-12] MEDS: POTASSIUM EFFERVESENT TAB 25 MEQ PO SCH (09:13)
[2020-11-12] MEDS: METOPROLOL TARTRATE 50 MG TAB PO SCH (09:13)
[2020-11-12] MEDS: FAMOTIDINE 20 MG TAB PO SCH (09:13)
[2020-11-12] MEDS: CITALOPRAM HYDROBR 20 MG TAB PO SCH (09:14)
[2020-11-12] MEDS: levETIRAcetam 500 MG TAB PO SCH (09:14)
[2020-11-12] MEDS: amLODIPine BESYLATE 5 MG TAB PO SCH (09:14)
[2020-11-12] MEDS: LOSARTAN POTASSIUM 50 MG TAB PO SCH (09:15)
[2020-11-12 13:00] VITALS: BP 133/86
== END 2020-11-12 15:30 | disposition home health service (06) | DRG 313 ==
LOC: EDBD 10:23 → ER 10:23 → TELE 13:29 → TELE-WESTW 15:04
PROVIDERS: ADMIT Nurse Practitioner Acute Care; ATTEND Internal Medicine
DX: R07.89 Other chest pain (principal); I50.33 Acute on chronic diastolic (congestive) heart failure; G40.909 Epilepsy, unspecified, not intractable, without status epilepticus; E66.01 Morbid (severe) obesity due to excess calories; E11.65 Type 2 diabetes mellitus with hyperglycemia; E78.5 Hyperlipidemia, unspecified; F79 Unspecified intellectual disabilities; J44.9 Chronic obstructive pulmonary disease, unspecified; Z88.8 Allergy status to other drugs, medicaments and biological substances; Z20.822 Contact with and (suspected) exposure to COVID-19; Z68.33 Body mass index [BMI] 33.0-33.9, adult; I11.0 Hypertensive heart disease with heart failure; E87.6 Hypokalemia; F17.210 Nicotine dependence, cigarettes, uncomplicated; Z79.01 Long term (current) use of anticoagulants; Z79.82 Long term (current) use of aspirin; Z82.3 Family history of stroke; Z82.49 Family history of ischemic heart disease and other diseases of the circulatory system; Z83.3 Family history of diabetes mellitus; Z86.73 Personal history of transient ischemic attack (TIA), and cerebral infarction without residual deficits; Z79.84 Long term (current) use of oral hypoglycemic drugs; Z79.899 Other long term (current) drug therapy
CPT/HCPCS: 36415; 71045; 78452; 80048; 80053; 80061; 82962; 83036; 83735; 83880; 84443; 84484; 85025; 85610; 85730; 86141; 87426; 93005; 93017; 93306; G0378; J0153; J0461; J1815

== ENCOUNTER 2020-11-26 15:33 | Emergency (ER) | payer MEDICARE, MEDICAID ==
[~2020-11-26] VITALS: Ht 175.3 cm; Wt 126.3 kg
[~2020-11-26 15:33] MED LIST changes: +DOXY-332 PO; +LEVO500T31 PO; +METR500T PO
[2020-11-26 15:38] VITALS: BP 123/100
[2020-11-26] MEDS ORDERED: KETOROLAC TROMETH 60MG/2ML VIAL IM ONE (18:30)
== END 2020-11-26 18:32 | disposition home or self-care (01) ==
LOC: ER 15:33
DX: S83.91XA Sprain of unspecified site of right knee, initial encounter (principal); S76.012A Strain of muscle, fascia and tendon of left hip, initial encounter; J44.9 Chronic obstructive pulmonary disease, unspecified; E11.9 Type 2 diabetes mellitus without complications; E78.5 Hyperlipidemia, unspecified; I10 Essential (primary) hypertension; Z88.6 Allergy status to analgesic agent; W18.00XA Striking against unspecified object with subsequent fall, initial encounter; Y93.01 Activity, walking, marching and hiking; Y92.89 Other specified places as the place of occurrence of the external cause; Y99.8 Other external cause status
CPT/HCPCS: 29505; 73502; 73562; 96372; 99284; J1885

== ENCOUNTER 2020-12-30 19:00 | Emergency (ER) | payer MEDICARE, MEDICAID ==
[~2020-12-30] VITALS: Ht 188 cm; Wt 113.4 kg
[2020-12-30 19:21] VITALS: BP 111/73
[2020-12-30] MEDS ORDERED: KETOROLAC TROMETH 30 MG/ML 1ML VIAL IV ONE (20:30)
[2020-12-30 21:18] LABS: Mean Corpuscular Volume 73.4 fL (80.0-100.0); White Blood Cell 7.5 10^3/uL (4.4-10.8)
[2020-12-30 21:21] LABS: Hematocrit 36.2 % (41.0-53.0); Hemoglobin 11.6 g/dL (13.5-17.5); Mean Corpuscular Hemoglobin 23.6 pg (28.0-32.0); Mean Corpuscular Hgb Conc. 32.2 g/dL (32.0-36.0); Red Blood Cells 4.93 10^6/uL (4.5-5.90); Red Cell Distribution Width 19.7 % (11.8-14.3)
[2020-12-30 21:34] LABS: Basophils % (manual) 0 (0.0-2.0); Blast Cells 0; Eosinophils % (manual) 0 (0-7); Metamyelocytes % 0; Myelocytes % 0; Promyelocytes % 0; Reactive Lymphocytes 0
[2020-12-30 21:36] LABS: Magnesium 2.1 mg/dL (1.6-2.6)
[2020-12-30 21:39] LABS: Anion Gap 7 (5-15); Blood Urea Nitrogen 19 mg/dL (7-18); Calcium 8.7 mg/dL (8.5-10.1); Carbon Dioxide 26 mmol/L (21-32); Chloride 111 mmol/L (98-107); Glucose 216 mg/dL (74-106); Potassium 3.4 mmol/L (3.5-5.1); Sodium 144 mmol/L (136-145)
[2020-12-30 21:47] LABS: BUN/Creatinine Ratio 12.4; GFR African American 62 mL/min; GFR Non-African American 51 mL/min; Lipase 120 U/L (73-393)
[2020-12-30 22:34] LABS: Band Neutrophils % (manual) 3; Lymphocytes % (manual) 27 (10.0-50.0); Monocytes % (manual) 10 (0-12)
== END 2020-12-31 00:25 | disposition home or self-care (01) ==
LOC: EDBD 19:00 → ER 19:02
DX: R10.11 Right upper quadrant pain (principal); R11.2 Nausea with vomiting, unspecified; I11.0 Hypertensive heart disease with heart failure; I50.9 Heart failure, unspecified; J44.9 Chronic obstructive pulmonary disease, unspecified; E11.9 Type 2 diabetes mellitus without complications; E78.5 Hyperlipidemia, unspecified; Z86.73 Personal history of transient ischemic attack (TIA), and cerebral infarction without residual deficits; Z90.89 Acquired absence of other organs; Z79.82 Long term (current) use of aspirin; Z79.2 Long term (current) use of antibiotics; Z79.899 Other long term (current) drug therapy; Z88.8 Allergy status to other drugs, medicaments and biological substances; Z91.030 Bee allergy status
CPT/HCPCS: 36415; 71045; 80048; 82150; 83690; 83735; 83880; 84484; 85007; 85027

== ENCOUNTER 2021-04-15 23:04 | Inpatient (IN) | payer MEDICARE, MEDICAID ==
[~2021-04-15] VITALS: Ht 182.9 cm; Wt 141.3 kg
[2021-04-15 23:54] LABS: Basophils # (auto) 0 10 ^3/uL (0-0.2); Hemoglobin 11.1 g/dL (13.5-17.5)
[2021-04-15 23:56] LABS: Basophils % (auto) 0.6 % (0.0-2.0); Eosinophils # (auto) 0.3 10 ^3/uL (0-0.8); Eosinophils % (auto) 4.1 % (0.0-7.0); Hematocrit 34.7 % (41.0-53.0); Lymphocytes # (auto) 2.2 10 ^3/uL (0.4-5.4); Lymphocytes % (auto) 27.5 % (10.0-50.0); Mean Corpuscular Hemoglobin 24.2 pg (28.0-32.0); Mean Corpuscular Volume 75.7 fL (80.0-100.0); Monocytes # (auto) 0.7 10 ^3/uL (0-1.3); Neutrophils # (auto) 4.6 10 ^3/uL (1.6-8.6); Neutrophils % (auto) 58.8 % (37.0-80.0); Red Blood Cells 4.58 10^6/uL (4.5-5.90); Red Cell Distribution Width 19.4 % (11.8-14.3); White Blood Cell 7.9 10^3/uL (4.4-10.8)
[2021-04-16 00:11] LABS: Albumin 3.2 g/dL (3.4-5.0); Calcium 8.5 mg/dL (8.5-10.1); Potassium 3.3 mmol/L (3.5-5.1)
[2021-04-16 00:13] LABS: INR 1.11 (0.9-1.15); Partial Thromboplastin Time 26.7 sec (23.6-33.0)
[2021-04-16 00:17] LABS: BUN/Creatinine Ratio 11.9; Bilirubin, Total 0.2 mg/dL (0.2-1.0); Total Protein 7.4 g/dL (6.4-8.2)
[2021-04-16 07:47] LABS: Alanine Aminotransferase 31 U/L (16-61); Albumin 3.5 g/dL (3.4-5.0); Alkaline Phosphatase 95 U/L (45-117); Aspartate Aminotransferase 13 U/L (15-37); Bilirubin, Direct < 0.1 mg/dL (0-0.2); Bilirubin, Total 0.2 mg/dL (0.2-1.0); Total Protein 7.9 g/dL (6.4-8.2)
[2021-04-16] MEDS ORDERED: NITROGLYCERIN 0.4 MG SL TAB SL PRN (08:30)
[2021-04-16] MEDS ORDERED: MORPHINE SULFATE INJECTION 2 MG/ML SYRG IV PRN (08:30)
[2021-04-16] MEDS ORDERED: LACTULOSE 20Gm/30ML SOLN PO PRN (08:45)
[2021-04-16] MEDS ORDERED: ACETAMINOPHEN 500 MG TAB PO PRN (08:45)
[2021-04-16] MEDS ORDERED: DEXTROSE (50%) 50ML SYRG IV PRN (08:45)
[2021-04-16] MEDS ORDERED: ALBUTEROL SULF 2.5 MG/0.5ML(0.5%) NEB SOLN NEB PRN (08:45)
[2021-04-16] MEDS ORDERED: LABETALOL HCL 5 MG/ML ML 20ML VIAL IV PRN (08:45)
[2021-04-16] MEDS ORDERED: ASPirin 81 mg TAB PO SCH (10:00)
[2021-04-16] MEDS ORDERED: ENOXAPARIN SOD 40 MG/0.4 ML SYRINGE SC SCH (10:00)
[2021-04-16 12:09] LABS: Basophils # (auto) 0 10 ^3/uL (0-0.2); Lymphocytes # (auto) 2.1 10 ^3/uL (0.4-5.4); Monocytes # (auto) 0.7 10 ^3/uL (0-1.3); Neutrophils # (auto) 4.1 10 ^3/uL (1.6-8.6)
[2021-04-16 12:12] LABS: Basophils % (auto) 0.5 % (0.0-2.0); Eosinophils # (auto) 0.3 10 ^3/uL (0-0.8); Eosinophils % (auto) 4.4 % (0.0-7.0); Hematocrit 38.8 % (41.0-53.0); Lymphocytes % (auto) 29.4 % (10.0-50.0); Mean Corpuscular Hemoglobin 23.9 pg (28.0-32.0); Mean Corpuscular Volume 77.1 fL (80.0-100.0); Monocytes % (auto) 10.1 % (0.0-12.0); Neutrophils % (auto) 55.6 % (37.0-80.0); Nucleated Red Blood Cells % 0.2 %; Red Blood Cells 5.03 10^6/uL (4.5-5.90); White Blood Cell 7.3 10^3/uL (4.4-10.8)
[2021-04-16] MEDS: IPRATROPIUM BROM 0.5 MG/2.5ML INH SOL NEB SCH ×2 (12:32→19:07)
[2021-04-16] MEDS: ALBUTEROL SULF 2.5 MG/0.5ML(0.5%) NEB SOLN NEB SCH ×2 (12:32→19:08)
[2021-04-16 14:19] VITALS: BP 135/75
[2021-04-16 16:58] LABS: BUN/Creatinine Ratio 14.7; Calcium 9.2 mg/dL (8.5-10.1); Potassium 3.6 mmol/L (3.5-5.1)
[2021-04-16] MEDS ORDERED: LORazepam 2MG/ML-1ML VIAL IV PRN (18:00)
[2021-04-16] MEDS ORDERED: WARFARIN SODIUM 5 MG TAB PO ONE (20:45)
[2021-04-16] MEDS: SODIUM CHLORIDE 0.9% 1,000 ML IV SCH (21:15)
[2021-04-16 22:00] LABS: INR 1.21 (0.9-1.15)
[2021-04-16] MEDS: InsuLIN REG 1unit/0.01ml Soln (100units/ml) SC SCH ×3 (22:00→22:19)
[2021-04-16] MEDS: ACCU-CHEK COMFORT CURVE STRIP VI SCH (22:19)
[2021-04-16] MEDS: levETIRAcetam INJ 1,250 MG in D5W 5% 100 ML IV SCH (22:34)
[2021-04-17] MEDS: ATORVASTATIN 20 MG TAB PO SCH ×2 (00:37→21:45)
[2021-04-17] MEDS: SODIUM CHLORIDE 0.9% 1,000 ML IV SCH ×2 (00:37→09:45)
[2021-04-17] MEDS: IPRATROPIUM BROM 0.5 MG/2.5ML INH SOL NEB SCH ×4 (00:47→19:02)
[2021-04-17] MEDS: ALBUTEROL SULF 2.5 MG/0.5ML(0.5%) NEB SOLN NEB SCH ×4 (00:47→19:02)
[2021-04-17 01:18] VITALS: BP 139/93
[2021-04-17 05:00] VITALS: BP 123/70
[2021-04-17 06:23] LABS: Basophils # (auto) 0 10 ^3/uL (0-0.2); Basophils % (auto) 0.5 % (0.0-2.0); Eosinophils # (auto) 0.3 10 ^3/uL (0-0.8); Eosinophils % (auto) 3.5 % (0.0-7.0); Hematocrit 35.1 % (41.0-53.0); Hemoglobin 11.1 g/dL (13.5-17.5); Lymphocytes # (auto) 1.7 10 ^3/uL (0.4-5.4); Lymphocytes % (auto) 20.3 % (10.0-50.0); Mean Corpuscular Hemoglobin 23.9 pg (28.0-32.0); Mean Corpuscular Hgb Conc. 31.7 g/dL (32.0-36.0); Mean Corpuscular Volume 75.5 fL (80.0-100.0); Monocytes # (auto) 0.7 10 ^3/uL (0-1.3); Monocytes % (auto) 7.8 % (0.0-12.0); Neutrophils # (auto) 5.7 10 ^3/uL (1.6-8.6); Neutrophils % (auto) 67.9 % (37.0-80.0); Nucleated Red Blood Cells % 0.1 %; Red Blood Cells 4.66 10^6/uL (4.5-5.90); Red Cell Distribution Width 19.7 % (11.8-14.3); White Blood Cell 8.3 10^3/uL (4.4-10.8)
[2021-04-17] MEDS: InsuLIN REG 1unit/0.01ml Soln (100units/ml) SC SCH ×4 (06:32→21:59)
[2021-04-17] MEDS: ACCU-CHEK COMFORT CURVE STRIP VI SCH ×4 (06:36→21:59)
[2021-04-17 06:38] LABS: INR 1.21 (0.9-1.15); Partial Thromboplastin Time 28.2 sec (23.6-33.0)
[2021-04-17 06:43] LABS: Potassium 3.3 mmol/L (3.5-5.1)
[2021-04-17 06:47] LABS: Calcium 8.4 mg/dL (8.5-10.1); Magnesium 2.8 mg/dL (1.6-2.6)
[2021-04-17 09:00] VITALS: BP 120/76
[2021-04-17] MEDS ORDERED: POTASSIUM CHL 20 Meq TABLET PO ONE (09:00)
[2021-04-17] MEDS: levETIRAcetam INJ 1,250 MG in D5W 5% 100 ML IV SCH ×2 (09:35→21:46)
[2021-04-17] MEDS: traMADol HCL 50 MG TAB PO PRN (09:35)
[2021-04-17] MEDS: METOPROLOL TARTRATE 25 MG TAB PO SCH ×2 (09:40→21:45)
[2021-04-17 13:00] VITALS: BP 142/87
[2021-04-17 17:00] VITALS: BP 136/88
[2021-04-17] MEDS ORDERED: WARFARIN SODIUM 5 MG TAB PO ONE (17:00)
[2021-04-17 23:18] VITALS: BP 142/76
[2021-04-18] MEDS: IPRATROPIUM BROM 0.5 MG/2.5ML INH SOL NEB SCH ×4 (01:01→19:42)
[2021-04-18] MEDS: ALBUTEROL SULF 2.5 MG/0.5ML(0.5%) NEB SOLN NEB SCH ×4 (01:01→19:42)
[2021-04-18 05:20] VITALS: BP 157/95
[2021-04-18] MEDS: ACCU-CHEK COMFORT CURVE STRIP VI SCH ×4 (06:22→21:40)
[2021-04-18] MEDS: InsuLIN REG 1unit/0.01ml Soln (100units/ml) SC SCH ×4 (06:22→22:10)
[2021-04-18 07:34] LABS: Calcium 8.7 mg/dL (8.5-10.1); Potassium 3.7 mmol/L (3.5-5.1)
[2021-04-18 07:37] LABS: BUN/Creatinine Ratio 16.7
[2021-04-18 07:41] LABS: INR 1.32 (0.9-1.15); Partial Thromboplastin Time 29.1 sec (23.6-33.0)
[2021-04-18 07:43] LABS: Basophils # (auto) 0 10 ^3/uL (0-0.2); Basophils % (auto) 0.6 % (0.0-2.0); Lymphocytes # (auto) 1.9 10 ^3/uL (0.4-5.4); Monocytes # (auto) 0.7 10 ^3/uL (0-1.3); Nucleated Red Blood Cells % 0.1 %
[2021-04-18 07:46] LABS: Eosinophils # (auto) 0.3 10 ^3/uL (0-0.8); Eosinophils % (auto) 4.3 % (0.0-7.0); Hematocrit 33.8 % (41.0-53.0); Lymphocytes % (auto) 25.7 % (10.0-50.0); Mean Corpuscular Hemoglobin 24.6 pg (28.0-32.0); Mean Corpuscular Hgb Conc. 32.7 g/dL (32.0-36.0); Mean Corpuscular Volume 75.3 fL (80.0-100.0); Monocytes % (auto) 9.4 % (0.0-12.0); Neutrophils # (auto) 4.4 10 ^3/uL (1.6-8.6); Red Blood Cells 4.48 10^6/uL (4.5-5.90); Red Cell Distribution Width 19.6 % (11.8-14.3); White Blood Cell 7.3 10^3/uL (4.4-10.8)
[2021-04-18 09:00] VITALS: BP 136/82
[2021-04-18] MEDS: METOPROLOL TARTRATE 25 MG TAB PO SCH ×2 (09:37→22:09)
[2021-04-18] MEDS: levETIRAcetam INJ 1,250 MG in D5W 5% 100 ML IV SCH ×2 (09:59→22:07)
[2021-04-18] MEDS: traMADol HCL 50 MG TAB PO PRN ×3 (10:06→22:33)
[2021-04-18 13:00] VITALS: BP 151/81
[2021-04-18 17:00] VITALS: BP 163/98
[2021-04-18] MEDS ORDERED: WARFARIN SODIUM 5 MG TAB PO SCH (17:00)
[2021-04-18] MEDS ORDERED: WARFARIN SODIUM 5 MG TAB PO ONE (17:00)
[2021-04-18] MEDS ORDERED: LABETALOL HCL 5 MG/ML 4ML SYRINGE IV PRN (17:30)
[2021-04-18 18:24] VITALS: BP 134/98
[2021-04-18] MEDS: ATORVASTATIN 20 MG TAB PO SCH (22:08)
[2021-04-18 22:43] VITALS: BP 151/89
[2021-04-19] MEDS: traMADol HCL 50 MG TAB PO PRN (04:44)
[2021-04-19 05:56] VITALS: BP 159/100
[2021-04-19] MEDS: ALBUTEROL SULF 2.5 MG/0.5ML(0.5%) NEB SOLN NEB SCH ×3 (06:31→12:00)
[2021-04-19] MEDS: IPRATROPIUM BROM 0.5 MG/2.5ML INH SOL NEB SCH ×3 (06:31→12:00)
[2021-04-19] MEDS: InsuLIN REG 1unit/0.01ml Soln (100units/ml) SC SCH ×3 (07:00→18:00)
[2021-04-19] MEDS: ACCU-CHEK COMFORT CURVE STRIP VI SCH ×3 (07:01→18:00)
[2021-04-19] MEDS ORDERED: FUROSEMIDE 40 MG/4 ML VIAL IV ONE (07:15)
[2021-04-19 08:15] LABS: INR 1.3 (0.9-1.15)
[2021-04-19 09:00] VITALS: BP 140/99
[2021-04-19] MEDS: METOPROLOL TARTRATE 25 MG TAB PO SCH (10:30)
[2021-04-19] MEDS: levETIRAcetam INJ 1,250 MG in D5W 5% 100 ML IV SCH (12:00)
[2021-04-19 15:23] VITALS: BP 145/91
[2021-04-19] MEDS ORDERED: WARFARIN SODIUM 2.5 MG TAB PO ONE (17:00)
== END 2021-04-19 19:00 | disposition home or self-care (01) | DRG 682 ==
LOC: EDBD 23:04 → ER 23:04 → TELE 04-16 08:30 → TELE-WESTW 04-16 23:20 → WEST WING 04-18 14:03
PROVIDERS: ADMIT Internal Medicine; ATTEND Internal Medicine Geriatric Medicine
DX: N17.9 Acute kidney failure, unspecified (principal); G93.41 Metabolic encephalopathy; I69.351 Hemiplegia and hemiparesis following cerebral infarction affecting right dominant side; Z68.41 Body mass index [BMI] 40.0-44.9, adult; H53.461 Homonymous bilateral field defects, right side; I50.9 Heart failure, unspecified; R55 Syncope and collapse; E87.6 Hypokalemia; E86.0 Dehydration; E66.9 Obesity, unspecified; E11.9 Type 2 diabetes mellitus without complications; F41.9 Anxiety disorder, unspecified; J44.9 Chronic obstructive pulmonary disease, unspecified; G40.409 Other generalized epilepsy and epileptic syndromes, not intractable, without status epilepticus; Z20.822 Contact with and (suspected) exposure to COVID-19; E78.00 Pure hypercholesterolemia, unspecified; E78.5 Hyperlipidemia, unspecified; F17.200 Nicotine dependence, unspecified, uncomplicated; I11.0 Hypertensive heart disease with heart failure; I25.119 Atherosclerotic heart disease of native coronary artery with unspecified angina pectoris; Z79.01 Long term (current) use of anticoagulants; Z82.3 Family history of stroke; Z82.49 Family history of ischemic heart disease and other diseases of the circulatory system; Z83.3 Family history of diabetes mellitus; Z87.442 Personal history of urinary calculi; Z88.8 Allergy status to other drugs, medicaments and biological substances
CPT/HCPCS: 36415; 70450; 70551; 71045; 80048; 80053; 80061; 80076; 80320; 82140; 82550; 82962; 83036; 83605; 83735; 84484; 85025; 85610; 85730; 87426; 93005; 93306; 93886; 93970; 94640; 95819; G0378; J1815; J3490; J7060

== ENCOUNTER 2021-07-02 13:13 | Inpatient (IN) | payer MEDICARE, MEDICAID ==
[~2021-07-02] VITALS: Ht 188 cm; Wt 126.5 kg
[2021-07-02] MEDS ORDERED: ACETAMINOPHEN 500 MG TAB PO ONE (13:37)
[2021-07-02] MEDS ORDERED: methylPREDNISolone SOD SUCC 125 MG/2 ML VL IV ONE (15:00)
[2021-07-02] MEDS ORDERED: CHOLECALCIFEROL (VITD3) 2,000 UNIT CAP/TAB PO ONE (15:00)
[2021-07-02] MEDS ORDERED: AZITHROMYCIN 500MG/ 250ML 250 ML IV ONE (15:00)
[2021-07-02] MEDS ORDERED: ZINC SULFATE 220mg CAP or TAB PO ONE (15:00)
[2021-07-02] MEDS ORDERED: ASCORBIC ACID 500 MG TAB PO ONE (15:00)
[2021-07-02 16:38] LABS: Basophils # (auto) 0 10 ^3/uL (0-0.2); Eosinophils # (auto) 0 10 ^3/uL (0-0.8); Hemoglobin 10.8 g/dL (13.5-17.5); Lymphocytes # (auto) 0.5 10 ^3/uL (0.4-5.4); Neutrophils # (auto) 2.1 10 ^3/uL (1.6-8.6); White Blood Cell 2.9 10^3/uL (4.4-10.8)
[2021-07-02 16:41] LABS: Basophils % (auto) 0.5 % (0.0-2.0); Hematocrit 32.9 % (41.0-53.0); Mean Corpuscular Hemoglobin 24.9 pg (28.0-32.0); Mean Corpuscular Hgb Conc. 32.8 g/dL (32.0-36.0); Mean Corpuscular Volume 75.9 fL (80.0-100.0); Monocytes # (auto) 0.2 10 ^3/uL (0-1.3); Monocytes % (auto) 8.6 % (0.0-12.0); Neutrophils % (auto) 74.9 % (37.0-80.0); Nucleated Red Blood Cells % 0.2 %; Red Blood Cells 4.33 10^6/uL (4.5-5.90); Red Cell Distribution Width 17.7 % (11.8-14.3)
[2021-07-02 16:55] LABS: Potassium 3.3 mmol/L (3.5-5.1)
[2021-07-02 17:06] LABS: Albumin 2.9 g/dL (3.4-5.0); BUN/Creatinine Ratio 12.5; Bilirubin, Total 0.5 mg/dL (0.2-1.0); CRP High Sensitivity 4.33 mg/dL (< 0.3); Magnesium 2.8 mg/dL (1.6-2.6)
[2021-07-02] MEDS ORDERED: NITROGLYCERIN 0.4 MG SL TAB SL PRN ×2 (18:15→21:30)
[2021-07-02] MEDS ORDERED: MORPHINE SULFATE INJECTION 2 MG/ML SYRG IV PRN ×2 (18:15→21:30)
[2021-07-02] MEDS ORDERED: DEXTROSE (50%) 50ML SYRG IV PRN (18:15)
[2021-07-02] MEDS: POTASSIUM CHL 10MEQ/50ML 50 ML IV SCH (21:15)
[2021-07-02] MEDS ORDERED: ACETAMINOPHEN 325 MG TAB PO PRN (21:30)
[2021-07-02] MEDS ORDERED: REMDESIVIR PER PHARMACY 0 ML IV SCH (21:30)
[2021-07-02] MEDS ORDERED: HYDROcodone-ACET 5/325MG TAB PO PRN (21:30)
[2021-07-02] MEDS ORDERED: DOCUSATE SOD 100 MG CAP PO PRN (21:30)
[2021-07-02] MEDS ORDERED: METOCLOPRAMIDE HCL 5MG/ml INJ 2ml VIAL IV PRN (21:30)
[2021-07-02] MEDS ORDERED: ALUM & MAG HYDROX-SIMETH LIQ(MAALOX) 30 ML PO PRN (21:30)
[2021-07-02] MEDS ORDERED: ACCU-CHEK COMFORT CURVE STRIP VI SCH (22:00)
[2021-07-02] MEDS ORDERED: InsuLIN REG 1unit/0.01ml Soln (100units/ml) SC SCH (22:00)
[2021-07-02] MEDS ORDERED: CEFEPIME 1 GM in SODIUM CHL 0.9% 50 ML IV ONE (22:00)
[2021-07-02] MEDS: BUDESONIDE (INHALATION) 180 MCG IH IN SCH (22:00)
[2021-07-02] MEDS ORDERED: BUMETANIDE 2.5mg/10ml (0.25 mg/ml) INJ IV ONE (22:30)
[2021-07-02] MEDS ORDERED: METOPROLOL SUCCINATE XL 50 MG TAB PO ONE (22:30)
[2021-07-02] MEDS ORDERED: FAMOTIDINE (10MG/ML) 2ML VL IV ONE (22:30)
[2021-07-02] MEDS ORDERED: REMDESIVIR 200 MG in NS 210ml LOADING DOSE ADULT IV ONE (22:30)
[2021-07-02] MEDS: POTASSIUM CHL 20 Meq TABLET PO SCH (23:14)
[2021-07-02 23:45] VITALS: BP 112/62
[2021-07-02 23:52] VITALS: BP 112/62
[2021-07-03 01:31] LABS: Basophils # (auto) 0 10 ^3/uL (0-0.2); Eosinophils # (auto) 0 10 ^3/uL (0-0.8); Hemoglobin 10.8 g/dL (13.5-17.5); Lymphocytes # (auto) 0.3 10 ^3/uL (0.4-5.4); Mean Corpuscular Hemoglobin 24.1 pg (28.0-32.0); Mean Corpuscular Hgb Conc. 31.7 g/dL (32.0-36.0); Monocytes # (auto) 0.1 10 ^3/uL (0-1.3); Monocytes % (auto) 6.3 % (0.0-12.0); Neutrophils # (auto) 1.7 10 ^3/uL (1.6-8.6); White Blood Cell 2.1 10^3/uL (4.4-10.8)
[2021-07-03 01:32] LABS: Albumin 2.5 g/dL (3.4-5.0); Calcium 7.7 mg/dL (8.5-10.1); Magnesium 2.7 mg/dL (1.6-2.6); Potassium 3.4 mmol/L (3.5-5.1)
[2021-07-03 01:33] LABS: Basophils % (auto) 0.2 % (0.0-2.0); Eosinophils % (auto) 0.1 % (0.0-7.0); Lymphocytes % (auto) 13.9 % (10.0-50.0); Neutrophils % (auto) 79.5 % (37.0-80.0); Red Blood Cells 4.47 10^6/uL (4.5-5.90); Red Cell Distribution Width 18.3 % (11.8-14.3)
[2021-07-03 01:40] LABS: Bilirubin, Total 0.5 mg/dL (0.2-1.0); CRP High Sensitivity 5.75 mg/dL (< 0.3); Total Protein 6.8 g/dL (6.4-8.2)
[2021-07-03 01:46] LABS: Thyroid Stimulating Hormone 0.55 uIU/mL (0.358-3.74)
[2021-07-03] MEDS ORDERED: DEXTROSE (50%) 50ML SYRG IV PRN (02:15)
[2021-07-03] MEDS: ACCU-CHEK COMFORT CURVE STRIP VI SCH ×5 (02:25→21:15)
[2021-07-03] MEDS: InsuLIN REG 1unit/0.01ml Soln (100units/ml) SC SCH ×5 (02:28→21:37)
[2021-07-03 02:37] LABS: Lactic Acid w/Reflex 2.4 mmol/L (0.4-2.0)
[2021-07-03 04:49] VITALS: BP 107/66
[2021-07-03 05:45] LABS: BUN/Creatinine Ratio 14.5
[2021-07-03] MEDS: BUMETANIDE 2.5mg/10ml (0.25 mg/ml) INJ IV SCH ×2 (06:34→18:41)
[2021-07-03] MEDS: CEFEPIME 1 GM in SODIUM CHL 0.9% 50 ML IV SCH ×3 (06:39→21:40)
[2021-07-03] MEDS ORDERED: InsuLIN REG 1unit/0.01ml Soln (100units/ml) SC SCH (07:00)
[2021-07-03] MEDS ORDERED: INSULIN LANTUS (GLARGINE) 1 /0.01ml (100units/ml) SC SCH (07:00)
[2021-07-03 08:00] VITALS: BP 97/67
[2021-07-03 08:12] LABS: Basophils # (auto) 0 10 ^3/uL (0-0.2); Eosinophils # (auto) 0 10 ^3/uL (0-0.8); Lymphocytes # (auto) 0.2 10 ^3/uL (0.4-5.4); Mean Corpuscular Hgb Conc. 32.4 g/dL (32.0-36.0); Monocytes # (auto) 0.1 10 ^3/uL (0-1.3); Nucleated Red Blood Cells % 0.1 %; White Blood Cell 2.7 10^3/uL (4.4-10.8)
[2021-07-03 08:16] LABS: Basophils % (auto) 0.1 % (0.0-2.0); Hematocrit 34.4 % (41.0-53.0); Hemoglobin 11.2 g/dL (13.5-17.5); Lymphocytes % (auto) 8.6 % (10.0-50.0); Monocytes % (auto) 4.8 % (0.0-12.0); Neutrophils # (auto) 2.4 10 ^3/uL (1.6-8.6); Neutrophils % (auto) 86.5 % (37.0-80.0); Red Blood Cells 4.58 10^6/uL (4.5-5.90)
[2021-07-03 08:19] LABS: Mean Corpuscular Hemoglobin 24.4 pg (28.0-32.0); Mean Corpuscular Volume 75.1 fL (80.0-100.0); Red Cell Distribution Width 18.2 % (11.8-14.3)
[2021-07-03 08:24] LABS: Partial Thromboplastin Time 50.4 sec (23.6-33.0)
[2021-07-03 08:29] LABS: Albumin 2.6 g/dL (3.4-5.0); Calcium 7.7 mg/dL (8.5-10.1); Magnesium 3.2 mg/dL (1.6-2.6); Potassium 3.3 mmol/L (3.5-5.1)
[2021-07-03 08:33] LABS: INR 4.33 (0.9-1.15)
[2021-07-03 08:40] LABS: Bilirubin, Total 0.4 mg/dL (0.2-1.0); Phosphorus 1.4 mg/dL (2.5-4.90); Total Protein 7.1 g/dL (6.4-8.2); Uric Acid 9.7 mg/dL (3.5-7.2)
[2021-07-03 08:42] LABS: BUN/Creatinine Ratio 15.7
[2021-07-03 09:00] VITALS: BP 97/67
[2021-07-03] MEDS: POTASSIUM CHL 10MEQ/50ML 50 ML IV SCH (09:03)
[2021-07-03] MEDS: DexAMETHasone SOD PHOS 10MG/1ML VIAL INJ IV SCH (09:04)
[2021-07-03] MEDS: CITALOPRAM HYDROBR 20 MG TAB PO SCH (09:05)
[2021-07-03] MEDS: ASPirin 81 mg TAB PO SCH (09:05)
[2021-07-03] MEDS: ZINC SULFATE 220mg CAP or TAB PO SCH (09:05)
[2021-07-03] MEDS: levETIRAcetam 500 MG TAB PO SCH ×2 (09:07→21:38)
[2021-07-03] MEDS: ISOSORBIDE MONONITRATE 20 MG TAB PO SCH ×2 (09:07→21:39)
[2021-07-03] MEDS: IVERMECTIN 3 MG TAB PO SCH (09:07)
[2021-07-03] MEDS: POTASSIUM CHL 20 Meq TABLET PO SCH ×2 (09:07→21:38)
[2021-07-03] MEDS: ASCORBIC ACID 1,000 MG TAB PO SCH (09:08)
[2021-07-03] MEDS: METOPROLOL SUCCINATE XL 50 MG TAB PO SCH (09:08)
[2021-07-03] MEDS: CHOLECALCIFEROL (VITD3) 2,000 UNIT CAP/TAB PO SCH (09:08)
[2021-07-03] MEDS ORDERED: INSULIN LANTUS (GLARGINE) 1 /0.01ml (100units/ml) SC ONE (12:30)
[2021-07-03 13:00] VITALS: BP 112/74
[2021-07-03] MEDS: FAMOTIDINE (10MG/ML) 2ML VL IV SCH ×2 (13:15→21:38)
[2021-07-03 16:00] VITALS: BP 112/65
[2021-07-03] MEDS: REMDESIVIR 100mg 100 MG in SODIUM CHL 0.9% 230 ML IV SCH (17:10)
[2021-07-03] MEDS: ALBUTEROL SULF HFA 90MCG INH 200DOSE IN PRN (20:06)
[2021-07-03] MEDS: BUDESONIDE (INHALATION) 180 MCG IH IN SCH (20:07)
[2021-07-03] MEDS: ATORVASTATIN 20 MG TAB PO SCH (21:16)
[2021-07-03] MEDS: INSULIN LANTUS (GLARGINE) 1 /0.01ml (100units/ml) SC SCH (21:37)
[2021-07-03 22:00] VITALS: BP 107/67
[2021-07-04] MEDS: ACCU-CHEK COMFORT CURVE STRIP VI SCH ×6 (00:24→21:35)
[2021-07-04] MEDS: InsuLIN REG 1unit/0.01ml Soln (100units/ml) SC SCH ×6 (00:26→21:56)
[2021-07-04 04:43] VITALS: BP 114/75
[2021-07-04] MEDS: INSULIN LANTUS (GLARGINE) 1 /0.01ml (100units/ml) SC SCH ×2 (06:06→21:56)
[2021-07-04] MEDS: BUMETANIDE 2.5mg/10ml (0.25 mg/ml) INJ IV SCH ×2 (06:19→17:38)
[2021-07-04] MEDS: CEFEPIME 1 GM in SODIUM CHL 0.9% 50 ML IV SCH ×3 (06:20→21:35)
[2021-07-04 06:35] LABS: Basophils # (auto) 0 10 ^3/uL (0-0.2); Eosinophils # (auto) 0 10 ^3/uL (0-0.8); Red Cell Distribution Width 18.2 % (11.8-14.3); White Blood Cell 13.4 10^3/uL (4.4-10.8)
[2021-07-04 06:36] LABS: Basophils % (auto) 0.1 % (0.0-2.0); Hematocrit 34.2 % (41.0-53.0); Lymphocytes # (auto) 0.4 10 ^3/uL (0.4-5.4); Mean Corpuscular Hemoglobin 24.3 pg (28.0-32.0); Mean Corpuscular Hgb Conc. 32.3 g/dL (32.0-36.0); Mean Corpuscular Volume 75.2 fL (80.0-100.0); Monocytes # (auto) 0.3 10 ^3/uL (0-1.3); Monocytes % (auto) 2.5 % (0.0-12.0); Neutrophils # (auto) 12.7 10 ^3/uL (1.6-8.6); Neutrophils % (auto) 94.4 % (37.0-80.0); Nucleated Red Blood Cells % 0.1 %; Red Blood Cells 4.55 10^6/uL (4.5-5.90)
[2021-07-04 06:57] LABS: Albumin 2.5 g/dL (3.4-5.0); Calcium 8.6 mg/dL (8.5-10.1); Magnesium 2.6 mg/dL (1.6-2.6); Potassium 3.8 mmol/L (3.5-5.1); Potassium 4.1 mmol/L (3.5-5.1)
[2021-07-04 06:59] LABS: BUN/Creatinine Ratio 25.2
[2021-07-04 07:11] LABS: Bilirubin, Total 0.4 mg/dL (0.2-1.0); Phosphorus 1.8 mg/dL (2.5-4.90); Total Protein 6.5 g/dL (6.4-8.2)
[2021-07-04 07:12] LABS: Partial Thromboplastin Time 47.3 sec (23.6-33.0)
[2021-07-04 07:14] LABS: Albumin 2.6 g/dL (3.4-5.0); Bilirubin, Total 0.4 mg/dL (0.2-1.0); Calcium 8.2 mg/dL (8.5-10.1)
[2021-07-04 07:25] LABS: INR 5.53 (0.9-1.15)
[2021-07-04] MEDS: ALBUTEROL SULF HFA 90MCG INH 200DOSE IN PRN ×2 (07:57→21:02)
[2021-07-04] MEDS: BUDESONIDE (INHALATION) 180 MCG IH IN SCH ×2 (07:57→21:02)
[2021-07-04] MEDS: DexAMETHasone SOD PHOS 10MG/1ML VIAL INJ IV SCH (08:43)
[2021-07-04] MEDS: FAMOTIDINE (10MG/ML) 2ML VL IV SCH ×2 (08:44→21:35)
[2021-07-04] MEDS: CITALOPRAM HYDROBR 20 MG TAB PO SCH (08:44)
[2021-07-04] MEDS: ASPirin 81 mg TAB PO SCH (08:44)
[2021-07-04] MEDS: ZINC SULFATE 220mg CAP or TAB PO SCH (08:44)
[2021-07-04] MEDS: levETIRAcetam 500 MG TAB PO SCH ×2 (08:45→21:37)
[2021-07-04] MEDS: ISOSORBIDE MONONITRATE 20 MG TAB PO SCH ×2 (08:45→21:36)
[2021-07-04] MEDS: POTASSIUM CHL 20 Meq TABLET PO SCH ×2 (08:46→21:37)
[2021-07-04] MEDS: METOPROLOL SUCCINATE XL 50 MG TAB PO SCH (08:46)
[2021-07-04] MEDS: CHOLECALCIFEROL (VITD3) 2,000 UNIT CAP/TAB PO SCH (08:46)
[2021-07-04] MEDS: IVERMECTIN 3 MG TAB PO SCH (08:46)
[2021-07-04] MEDS: ASCORBIC ACID 1,000 MG TAB PO SCH (08:46)
[2021-07-04 09:00] VITALS: BP 111/59
[2021-07-04] MEDS ORDERED: phytonadione 10 MG in SODIUM CHL 0.9% 50 ML IV ONE (12:15)
[2021-07-04 13:00] VITALS: BP 113/80
[2021-07-04] MEDS: REMDESIVIR 100mg 100 MG in SODIUM CHL 0.9% 230 ML IV SCH (16:57)
[2021-07-04 17:00] VITALS: BP 105/57
[2021-07-04 22:00] VITALS: BP 127/75
[2021-07-04] MEDS: ATORVASTATIN 20 MG TAB PO SCH (22:07)
[2021-07-04] MEDS ORDERED: GABA-339 PO (23:24)
[2021-07-05] MEDS: ACCU-CHEK COMFORT CURVE STRIP VI SCH ×4 (00:25→17:50)
[2021-07-05] MEDS: InsuLIN REG 1unit/0.01ml Soln (100units/ml) SC SCH ×4 (00:29→17:49)
[2021-07-05] MEDS: LORazepam 0.5 MG TAB PO PRN (00:30)
[2021-07-05] MEDS: BUMETANIDE 2.5mg/10ml (0.25 mg/ml) INJ IV SCH ×2 (06:00→17:48)
[2021-07-05] MEDS: CEFEPIME 1 GM in SODIUM CHL 0.9% 50 ML IV SCH ×2 (06:00→14:58)
[2021-07-05] MEDS: INSULIN LANTUS (GLARGINE) 1 /0.01ml (100units/ml) SC SCH ×2 (06:08→22:00)
[2021-07-05] MEDS ORDERED: HALOPERIDOL LACTATE 5 MG/ML INJ VIAL IM ONE (06:15)
[2021-07-05 06:42] LABS: Albumin 2.9 g/dL (3.4-5.0); Calcium 8.4 mg/dL (8.5-10.1); INR 1.27 (0.9-1.15); Magnesium 3.3 mg/dL (1.6-2.6); Partial Thromboplastin Time 29.9 sec (23.6-33.0); Potassium 3.3 mmol/L (3.5-5.1)
[2021-07-05 06:45] LABS: BUN/Creatinine Ratio 22.8; Bilirubin, Total 0.6 mg/dL (0.2-1.0); Phosphorus 1.4 mg/dL (2.5-4.90); Total Protein 6.8 g/dL (6.4-8.2)
[2021-07-05 07:25] LABS: Basophils # (auto) 0 10 ^3/uL (0-0.2); Eosinophils # (auto) 0 10 ^3/uL (0-0.8); Hematocrit 34.8 % (41.0-53.0); Hemoglobin 11.4 g/dL (13.5-17.5); Mean Corpuscular Hgb Conc. 32.8 g/dL (32.0-36.0); Monocytes # (auto) 0.3 10 ^3/uL (0-1.3)
[2021-07-05 07:26] LABS: Basophils % (auto) 0.4 % (0.0-2.0); Lymphocytes # (auto) 0.3 10 ^3/uL (0.4-5.4); Lymphocytes % (auto) 3.5 % (10.0-50.0); Mean Corpuscular Hemoglobin 24.6 pg (28.0-32.0); Mean Corpuscular Volume 74.8 fL (80.0-100.0); Monocytes % (auto) 3.2 % (0.0-12.0); Neutrophils # (auto) 8.9 10 ^3/uL (1.6-8.6); Neutrophils % (auto) 92.9 % (37.0-80.0); Red Blood Cells 4.65 10^6/uL (4.5-5.90); Red Cell Distribution Width 18.3 % (11.8-14.3); White Blood Cell 9.6 10^3/uL (4.4-10.8)
[2021-07-05 09:00] VITALS: BP 161/68
[2021-07-05] MEDS: HALOPERIDOL LACTATE 5 MG/ML INJ VIAL IM ONE ×2 (09:15→09:53)
[2021-07-05] MEDS: BUDESONIDE (INHALATION) 180 MCG IH IN SCH ×2 (10:00→17:58)
[2021-07-05] MEDS: levETIRAcetam 500 MG TAB PO SCH (10:00)
[2021-07-05] MEDS: ZINC SULFATE 220mg CAP or TAB PO SCH (10:00)
[2021-07-05] MEDS: IVERMECTIN 3 MG TAB PO SCH (10:00)
[2021-07-05] MEDS: METOPROLOL SUCCINATE XL 50 MG TAB PO SCH (10:00)
[2021-07-05] MEDS: CHOLECALCIFEROL (VITD3) 2,000 UNIT CAP/TAB PO SCH (10:00)
[2021-07-05] MEDS: ASCORBIC ACID 1,000 MG TAB PO SCH (10:00)
[2021-07-05] MEDS: ASPirin 81 mg TAB PO SCH (10:00)
[2021-07-05] MEDS: ISOSORBIDE MONONITRATE 20 MG TAB PO SCH ×2 (10:00→22:00)
[2021-07-05] MEDS: POTASSIUM CHL 20 Meq TABLET PO SCH ×2 (10:00→22:00)
[2021-07-05] MEDS: CITALOPRAM HYDROBR 20 MG TAB PO SCH (10:00)
[2021-07-05] MEDS: FAMOTIDINE (10MG/ML) 2ML VL IV SCH ×2 (10:49→22:00)
[2021-07-05] MEDS: DexAMETHasone SOD PHOS 10MG/1ML VIAL INJ IV SCH (10:49)
[2021-07-05] MEDS ORDERED: HALOPERIDOL LACTATE 5 MG/ML INJ VIAL IM PRN (12:00)
[2021-07-05] MEDS ORDERED: DEXTROSE (50%) 50ML SYRG IV PRN (12:30)
[2021-07-05 13:00] VITALS: BP 168/99
[2021-07-05 16:05] VITALS: BP 161/68
[2021-07-05] MEDS: REMDESIVIR 100mg 100 MG in SODIUM CHL 0.9% 230 ML IV SCH (16:25)
[2021-07-05 17:00] VITALS: BP 167/98
[2021-07-05] MEDS: ALBUTEROL SULF HFA 90MCG INH 200DOSE IN PRN (17:58)
[2021-07-05 22:00] VITALS: BP 153/107
[2021-07-05] MEDS: levETIRAcetam INJ 1,250 MG in D5W 5% 100 ML IV SCH (22:00)
[2021-07-05] MEDS: ATORVASTATIN 20 MG TAB PO SCH (22:00)
[2021-07-05 23:00] VITALS: BP 153/70
[2021-07-06] MEDS: ACCU-CHEK COMFORT CURVE STRIP VI SCH ×5 (00:28→23:47)
[2021-07-06] MEDS ORDERED: levETIRAcetam 500 MG/5ML INJ IV ONE (00:34)
[2021-07-06] MEDS: LORazepam 0.5 MG TAB PO PRN (00:38)
[2021-07-06] MEDS: InsuLIN REG 1unit/0.01ml Soln (100units/ml) SC SCH ×4 (00:38→18:20)
[2021-07-06] MEDS: levETIRAcetam INJ 1,250 MG in D5W 5% 100 ML IV SCH ×3 (01:06→21:54)
[2021-07-06 05:00] VITALS: BP 140/91
[2021-07-06] MEDS: BUMETANIDE 2.5mg/10ml (0.25 mg/ml) INJ IV SCH ×2 (06:00→18:19)
[2021-07-06] MEDS: BUDESONIDE (INHALATION) 180 MCG IH IN SCH ×2 (06:13→20:30)
[2021-07-06] MEDS: ALBUTEROL SULF HFA 90MCG INH 200DOSE IN PRN ×2 (06:14→20:30)
[2021-07-06] MEDS: INSULIN LANTUS (GLARGINE) 1 /0.01ml (100units/ml) SC SCH (06:49)
[2021-07-06 07:14] LABS: Basophils # (auto) 0 10 ^3/uL (0-0.2); Basophils % (auto) 0.1 % (0.0-2.0); Eosinophils # (auto) 0 10 ^3/uL (0-0.8); Hematocrit 35.8 % (41.0-53.0); Hemoglobin 11.8 g/dL (13.5-17.5); Lymphocytes # (auto) 0.3 10 ^3/uL (0.4-5.4); Lymphocytes % (auto) 3.3 % (10.0-50.0); Mean Corpuscular Hemoglobin 24.5 pg (28.0-32.0); Mean Corpuscular Hgb Conc. 32.8 g/dL (32.0-36.0); Mean Corpuscular Volume 74.6 fL (80.0-100.0); Monocytes # (auto) 0.4 10 ^3/uL (0-1.3); Monocytes % (auto) 4.4 % (0.0-12.0); Neutrophils # (auto) 8.8 10 ^3/uL (1.6-8.6); Neutrophils % (auto) 92.2 % (37.0-80.0); Nucleated Red Blood Cells % 2.2 %; Red Cell Distribution Width 18.2 % (11.8-14.3); White Blood Cell 9.5 10^3/uL (4.4-10.8)
[2021-07-06 07:32] LABS: Potassium 3.5 mmol/L (3.5-5.1)
[2021-07-06 07:45] LABS: Albumin 2.8 g/dL (3.4-5.0); BUN/Creatinine Ratio 21.1; Bilirubin, Total 1.1 mg/dL (0.2-1.0); Calcium 8.3 mg/dL (8.5-10.1); Total Protein 6.8 g/dL (6.4-8.2)
[2021-07-06 09:00] VITALS: BP 149/112
[2021-07-06] MEDS ORDERED: D5W 5% 1,000 ML IV ONE (09:45)
[2021-07-06] MEDS: ISOSORBIDE MONONITRATE 20 MG TAB PO SCH ×2 (10:00→21:25)
[2021-07-06] MEDS: DexAMETHasone SOD PHOS 10MG/1ML VIAL INJ IV SCH (11:13)
[2021-07-06] MEDS: METOPROLOL SUCCINATE XL 50 MG TAB PO SCH (11:15)
[2021-07-06] MEDS: FAMOTIDINE (10MG/ML) 2ML VL IV SCH (11:16)
[2021-07-06] MEDS: ASCORBIC ACID 1,000 MG TAB PO SCH (11:16)
[2021-07-06] MEDS: CHOLECALCIFEROL (VITD3) 2,000 UNIT CAP/TAB PO SCH (11:16)
[2021-07-06] MEDS: ZINC SULFATE 220mg CAP or TAB PO SCH (11:17)
[2021-07-06] MEDS: ASPirin 81 mg TAB PO SCH (11:17)
[2021-07-06] MEDS: CITALOPRAM HYDROBR 20 MG TAB PO SCH (11:17)
[2021-07-06] MEDS: IVERMECTIN 3 MG TAB PO SCH (11:18)
[2021-07-06] MEDS: POTASSIUM CHL 20 Meq TABLET PO SCH ×2 (11:18→21:23)
[2021-07-06 13:14] VITALS: BP 146/115
[2021-07-06] MEDS ORDERED: LABETALOL HCL 5 MG/ML 4ML SYRINGE IV PRN ×2 (15:00)
[2021-07-06] MEDS: REMDESIVIR 100mg 100 MG in SODIUM CHL 0.9% 230 ML IV SCH (16:27)
[2021-07-06 17:00] VITALS: BP 149/101
[2021-07-06] MEDS: DOXYCYCLINE 100 MG TAB/CAP PO SCH (21:24)
[2021-07-06] MEDS: ATORVASTATIN 20 MG TAB PO SCH (21:24)
[2021-07-06 22:26] VITALS: BP 159/119
[2021-07-07] MEDS: InsuLIN REG 1unit/0.01ml Soln (100units/ml) SC SCH ×5 (00:01→23:13)
[2021-07-07] MEDS: INSULIN LANTUS (GLARGINE) 1 /0.01ml (100units/ml) SC SCH ×3 (00:02→23:12)
[2021-07-07] MEDS: MORPHINE SULFATE INJECTION 2 MG/ML SYRG IV PRN (00:28)
[2021-07-07 05:00] VITALS: BP 151/120
[2021-07-07] MEDS: BUMETANIDE 2.5mg/10ml (0.25 mg/ml) INJ IV SCH ×2 (05:07→18:28)
[2021-07-07] MEDS: ACCU-CHEK COMFORT CURVE STRIP VI SCH ×4 (06:01→23:12)
[2021-07-07 09:00] VITALS: BP 151/103
[2021-07-07] MEDS: cefTRIAXone 1GM/50ML D5W 50 ML IV SCH (09:30)
[2021-07-07] MEDS: ASPirin 81 mg TAB PO SCH (09:57)
[2021-07-07] MEDS: ZINC SULFATE 220mg CAP or TAB PO SCH (09:58)
[2021-07-07] MEDS: ISOSORBIDE MONONITRATE 20 MG TAB PO SCH ×2 (09:58→22:32)
[2021-07-07] MEDS: CITALOPRAM HYDROBR 20 MG TAB PO SCH (09:58)
[2021-07-07] MEDS: CHOLECALCIFEROL (VITD3) 2,000 UNIT CAP/TAB PO SCH (09:58)
[2021-07-07] MEDS: POTASSIUM CHL 20 Meq TABLET PO SCH ×2 (09:59→22:25)
[2021-07-07] MEDS: ASCORBIC ACID 1,000 MG TAB PO SCH (09:59)
[2021-07-07] MEDS: DOXYCYCLINE 100 MG TAB/CAP PO SCH ×2 (09:59→22:52)
[2021-07-07] MEDS: IVERMECTIN 3 MG TAB PO SCH (09:59)
[2021-07-07] MEDS: DexAMETHasone SOD PHOS 10MG/1ML VIAL INJ IV SCH (10:30)
[2021-07-07] MEDS: ALBUTEROL SULF HFA 90MCG INH 200DOSE IN PRN ×2 (10:34→21:21)
[2021-07-07] MEDS: BUDESONIDE (INHALATION) 180 MCG IH IN SCH ×2 (10:34→21:20)
[2021-07-07] MEDS: METOPROLOL SUCCINATE XL 50 MG TAB PO SCH (10:51)
[2021-07-07] MEDS: levETIRAcetam INJ 1,250 MG in D5W 5% 100 ML IV SCH ×2 (12:00→22:00)
[2021-07-07 13:00] VITALS: BP 154/106
[2021-07-07 15:32] VITALS: BP 140/98
[2021-07-07] MEDS ORDERED: cloNIDine 0.1 mg/24hr 7 DAY PATCH TD SCH (15:45)
[2021-07-07] MEDS: hydrALAZINE HCL 20 MG/ML VL IV PRN (16:30)
[2021-07-07 16:32] VITALS: BP 140/98
[2021-07-07 21:44] VITALS: BP 144/75
[2021-07-07] MEDS: ATORVASTATIN 20 MG TAB PO SCH (22:32)
[2021-07-08] MEDS: MORPHINE SULFATE INJECTION 2 MG/ML SYRG IV PRN (00:07)
[2021-07-08 05:08] VITALS: BP 138/105
[2021-07-08] MEDS: BUMETANIDE 2.5mg/10ml (0.25 mg/ml) INJ IV SCH ×2 (05:29→19:04)
[2021-07-08] MEDS: ACCU-CHEK COMFORT CURVE STRIP VI SCH ×4 (05:55→23:43)
[2021-07-08] MEDS: INSULIN LANTUS (GLARGINE) 1 /0.01ml (100units/ml) SC SCH ×2 (05:56→22:07)
[2021-07-08] MEDS: InsuLIN REG 1unit/0.01ml Soln (100units/ml) SC SCH ×4 (05:56→23:45)
[2021-07-08 08:00] VITALS: BP 155/110
[2021-07-08] MEDS: DexAMETHasone SOD PHOS 10MG/1ML VIAL INJ IV SCH (08:39)
[2021-07-08] MEDS: cefTRIAXone 1GM/50ML D5W 50 ML IV SCH (08:39)
[2021-07-08] MEDS: ASPirin 81 mg TAB PO SCH (08:40)
[2021-07-08] MEDS: CITALOPRAM HYDROBR 20 MG TAB PO SCH (08:40)
[2021-07-08] MEDS: ZINC SULFATE 220mg CAP or TAB PO SCH (08:40)
[2021-07-08] MEDS: ASCORBIC ACID 1,000 MG TAB PO SCH (08:41)
[2021-07-08] MEDS: METOPROLOL SUCCINATE XL 50 MG TAB PO SCH (08:41)
[2021-07-08] MEDS: CHOLECALCIFEROL (VITD3) 2,000 UNIT CAP/TAB PO SCH (08:41)
[2021-07-08] MEDS: hydrALAZINE HCL 20 MG/ML VL IV PRN (08:42)
[2021-07-08] MEDS: LORazepam 0.5 MG TAB PO PRN (08:42)
[2021-07-08] MEDS: POTASSIUM CHL 20 Meq TABLET PO SCH ×2 (08:43→22:05)
[2021-07-08] MEDS: ACETAMINOPHEN 500 MG TAB PO PRN ×2 (08:43→16:28)
[2021-07-08] MEDS: BUDESONIDE (INHALATION) 180 MCG IH IN SCH ×2 (10:00→19:54)
[2021-07-08] MEDS: ISOSORBIDE MONONITRATE 20 MG TAB PO SCH ×2 (10:00→23:42)
[2021-07-08 12:00] VITALS: BP 140/101
[2021-07-08] MEDS: levETIRAcetam INJ 1,250 MG in D5W 5% 100 ML IV SCH (12:25)
[2021-07-08] MEDS: DOXYCYCLINE 100 MG TAB/CAP PO SCH (13:14)
[2021-07-08] MEDS: ALBUTEROL SULF HFA 90MCG INH 200DOSE IN PRN (14:22)
[2021-07-08 16:00] VITALS: BP 153/87
[2021-07-08] MEDS: DOXYCYCLINE 100MG/250ML 250 ML IV SCH (16:27)
[2021-07-08 16:49] LABS: Basophils # (auto) 0 10 ^3/uL (0-0.2); Eosinophils # (auto) 0 10 ^3/uL (0-0.8); Mean Corpuscular Hemoglobin 24.6 pg (28.0-32.0)
[2021-07-08 16:51] LABS: Basophils % (auto) 0.4 % (0.0-2.0); Hematocrit 47.8 % (41.0-53.0); Lymphocytes # (auto) 0.3 10 ^3/uL (0.4-5.4); Lymphocytes % (auto) 2.6 % (10.0-50.0); Mean Corpuscular Hgb Conc. 31.5 g/dL (32.0-36.0); Mean Corpuscular Volume 78.4 fL (80.0-100.0); Monocytes # (auto) 0.7 10 ^3/uL (0-1.3); Monocytes % (auto) 5.4 % (0.0-12.0); Neutrophils # (auto) 11.5 10 ^3/uL (1.6-8.6); Neutrophils % (auto) 91.6 % (37.0-80.0); Nucleated Red Blood Cells % 0.7 %; Red Cell Distribution Width 18.9 % (11.8-14.3); White Blood Cell 12.5 10^3/uL (4.4-10.8)
[2021-07-08 17:05] LABS: Anion Gap 8 (5-15); BUN/Creatinine Ratio 25.8; Blood Urea Nitrogen 60 mg/dL (7-18); Calcium 9.2 mg/dL (8.5-10.1); Carbon Dioxide 26 mmol/L (21-32); Chloride 126 mmol/L (98-107); GFR African American 38 mL/min; GFR Non-African American 32 mL/min; Glucose 261 mg/dL (74-106); Potassium 4.5 mmol/L (3.5-5.1); Sodium 160 mmol/L (136-145)
[2021-07-08 17:51] LABS: INR 1.2 (0.9-1.15)
[2021-07-08] MEDS ORDERED: D5W 5% 1,000 ML IV SCH (19:00)
[2021-07-08] MEDS ORDERED: WARFARIN SODIUM 2 MG TAB PO ONE (20:00)
[2021-07-08] MEDS: CEFEPIME 1 GM in SODIUM CHL 0.9% 50 ML IV SCH (21:55)
[2021-07-08 21:58] VITALS: BP 154/97
[2021-07-08] MEDS: cloNIDine HCL 0.1 MG TAB PO SCH (22:04)
[2021-07-08] MEDS: ATORVASTATIN 20 MG TAB PO SCH (22:06)
[2021-07-08] MEDS ORDERED: ISOSORBIDE DINITRATE 10 MG TAB ONE (23:23)
[2021-07-09] VITALS (41 sets, daily range): BP systolic 92–154; BP diastolic 51–98
[2021-07-09] MEDS: levETIRAcetam INJ 1,250 MG in D5W 5% 100 ML IV SCH ×3 (01:12→22:55)
[2021-07-09] MEDS: DOXYCYCLINE 100MG/250ML 250 ML IV SCH ×2 (03:16→18:57)
[2021-07-09] MEDS: BUMETANIDE 2.5mg/10ml (0.25 mg/ml) INJ IV SCH (05:13)
[2021-07-09] MEDS: cloNIDine HCL 0.1 MG TAB PO SCH (05:13)
[2021-07-09] MEDS: ACCU-CHEK COMFORT CURVE STRIP VI SCH ×3 (05:34→18:00)
[2021-07-09] MEDS: InsuLIN REG 1unit/0.01ml Soln (100units/ml) SC SCH ×3 (05:35→18:00)
[2021-07-09] MEDS: CEFEPIME 1 GM in SODIUM CHL 0.9% 50 ML IV SCH ×2 (05:36→18:57)
[2021-07-09] MEDS: INSULIN LANTUS (GLARGINE) 1 /0.01ml (100units/ml) SC SCH (06:25)
[2021-07-09] MEDS: BUDESONIDE (INHALATION) 180 MCG IH IN SCH (08:45)
[2021-07-09] MEDS: ALBUTEROL SULF HFA 90MCG INH 200DOSE IN PRN (08:45)
[2021-07-09 08:57] LABS: Basophils # (auto) 0.1 10 ^3/uL (0-0.2); Basophils % (auto) 0.5 % (0.0-2.0); Eosinophils # (auto) 0 10 ^3/uL (0-0.8); Eosinophils % (auto) 0.2 % (0.0-7.0); Hematocrit 51.4 % (41.0-53.0); Hemoglobin 15.3 g/dL (13.5-17.5); Lymphocytes # (auto) 0.8 10 ^3/uL (0.4-5.4); Lymphocytes % (auto) 4.2 % (10.0-50.0); Mean Corpuscular Hemoglobin 24.2 pg (28.0-32.0); Mean Corpuscular Hgb Conc. 29.7 g/dL (32.0-36.0); Mean Corpuscular Volume 81.7 fL (80.0-100.0); Monocytes # (auto) 1.1 10 ^3/uL (0-1.3); Monocytes % (auto) 5.8 % (0.0-12.0); Neutrophils # (auto) 16.9 10 ^3/uL (1.6-8.6); Neutrophils % (auto) 89.3 % (37.0-80.0); Nucleated Red Blood Cells % 0.2 %; Red Blood Cells 6.29 10^6/uL (4.5-5.90); Red Cell Distribution Width 19.2 % (11.8-14.3); White Blood Cell 18.9 10^3/uL (4.4-10.8)
[2021-07-09] MEDS: D5W 5% 1,000 ML IV SCH ×2 (09:15→19:16)
[2021-07-09] MEDS: METOPROLOL SUCCINATE XL 50 MG TAB PO SCH (10:00)
[2021-07-09] MEDS: CHOLECALCIFEROL (VITD3) 2,000 UNIT CAP/TAB PO SCH (10:00)
[2021-07-09] MEDS: ZINC SULFATE 220mg CAP or TAB PO SCH (10:00)
[2021-07-09] MEDS: ISOSORBIDE MONONITRATE 20 MG TAB PO SCH (10:00)
[2021-07-09] MEDS: ASCORBIC ACID 1,000 MG TAB PO SCH (10:00)
[2021-07-09] MEDS: ASPirin 81 mg TAB PO SCH (10:00)
[2021-07-09] MEDS: CITALOPRAM HYDROBR 20 MG TAB PO SCH (10:00)
[2021-07-09 12:10] LABS: INR 1.32 (0.9-1.15)
[2021-07-09] MEDS ORDERED: ENOXAPARIN SOD 120 MG/0.8 ML SYRINGE SC ONE (12:15)
[2021-07-09] MEDS ORDERED: ROCURONIUM 10MG/ML 10ML VIAL IV ONE ×2 (12:35→13:52)
[2021-07-09] MEDS ORDERED: ETOMIDATE (2MG/ML) 20ML VIAL IV ONE ×2 (12:35→14:10)
[2021-07-09] MEDS ORDERED: SUCCINYLCHOLINE CHLORIDE 20 MG/ML 10ML VIAL IV ONE (13:53)
[2021-07-09] MEDS ORDERED: fentaNYL Drip 2500mCg/250mlNS 250 ML IV ONE (14:10)
[2021-07-09] MEDS ORDERED: MIDAZOLAM DRIP 50 mg/50mL 50 ML IV ONE (14:10)
[2021-07-09] MEDS ORDERED: PROPOFOL 100 ML IV ONE (14:19)
[2021-07-09] MEDS ORDERED: NOREPINEPHRINE 8 MG/250ML KIT 250 ML IV ONE (14:21)
[2021-07-09] MEDS: NOREPINEPHRINE 8 MG/250ML KIT 250 ML IV SCH ×2 (15:00→19:08)
[2021-07-09] MEDS: fentaNYL Drip 2500mCg/250mlNS 250 ML IV SCH (15:42)
[2021-07-09 15:43] LABS: BUN/Creatinine Ratio 22.2; Calcium 8.7 mg/dL (8.5-10.1); Potassium 4.6 mmol/L (3.5-5.1)
[2021-07-09] MEDS ORDERED: WARFARIN SODIUM 5 MG TAB PO ONE (17:00)
[2021-07-09] MEDS: PROPOFOL 100 ML IV SCH ×2 (17:59→19:03)
[2021-07-09] MEDS: MIDAZOLAM DRIP 50 mg/50mL 50 ML IV SCH (19:04)
[2021-07-09] MEDS ORDERED: ENOXAPARIN SOD 120 MG/0.8 ML SYRINGE SC SCH (22:00)
[2021-07-09] MEDS: ENOXAPARIN SOD 120 MG/0.8 ML SYRINGE SC SCH (22:56)
[2021-07-10] VITALS (46 sets, daily range): BP systolic 83–147; BP diastolic 46–93
[2021-07-10] MEDS: INSULIN LANTUS (GLARGINE) 1 /0.01ml (100units/ml) SC SCH ×3 (01:02→22:46)
[2021-07-10] MEDS: InsuLIN REG 1unit/0.01ml Soln (100units/ml) SC SCH ×4 (01:03→18:00)
[2021-07-10] MEDS: ACCU-CHEK COMFORT CURVE STRIP VI SCH ×4 (01:03→17:40)
[2021-07-10] MEDS: NOREPINEPHRINE BITARTRATE 32 MG in SODIUM CHL 0.9% 218 ML IV SCH ×2 (01:04→20:15)
[2021-07-10] MEDS ORDERED: SOD CHL 0.45% 1,000 ML IV SCH (03:15)
[2021-07-10] MEDS: DOXYCYCLINE 100MG/250ML 250 ML IV SCH ×2 (03:28→15:13)
[2021-07-10] MEDS: MIDAZOLAM DRIP 50 mg/50mL 50 ML IV SCH (03:30)
[2021-07-10 05:24] LABS: INR 1.66 (0.9-1.15); Partial Thromboplastin Time 32.5 sec (23.6-33.0)
[2021-07-10] MEDS: PROPOFOL 100 ML IV SCH (05:41)
[2021-07-10] MEDS: CEFEPIME 1 GM in SODIUM CHL 0.9% 50 ML IV SCH ×2 (07:03→17:00)
[2021-07-10] MEDS: PHENYLEPHRINE IV 250 ML IV SCH ×3 (07:30→18:55)
[2021-07-10 08:12] LABS: Calcium 8.1 mg/dL (8.5-10.1); Potassium 4.7 mmol/L (3.5-5.1)
[2021-07-10 08:32] LABS: Basophils # (auto) 0.1 10 ^3/uL (0-0.2); Eosinophils # (auto) 0 10 ^3/uL (0-0.8); Hemoglobin 12.5 g/dL (13.5-17.5); Mean Corpuscular Hgb Conc. 29.9 g/dL (32.0-36.0); Nucleated Red Blood Cells % 0.1 %
[2021-07-10 08:36] LABS: Basophils % (auto) 0.5 % (0.0-2.0); Hematocrit 41.8 % (41.0-53.0); Lymphocytes # (auto) 0.7 10 ^3/uL (0.4-5.4); Lymphocytes % (auto) 3.3 % (10.0-50.0); Mean Corpuscular Volume 80.2 fL (80.0-100.0); Monocytes % (auto) 5.2 % (0.0-12.0); Red Blood Cells 5.22 10^6/uL (4.5-5.90); White Blood Cell 19.8 10^3/uL (4.4-10.8)
[2021-07-10] MEDS: levETIRAcetam INJ 1,250 MG in D5W 5% 100 ML IV SCH (09:46)
[2021-07-10] MEDS: CITALOPRAM HYDROBR 20 MG TAB PO SCH (09:46)
[2021-07-10] MEDS: CHOLECALCIFEROL (VITD3) 2,000 UNIT CAP/TAB PO SCH (09:47)
[2021-07-10] MEDS: DOPamine 1600MCG/ML D5W 250 ML IV SCH (11:30)
[2021-07-10] MEDS: fentaNYL Drip 2500mCg/250mlNS 250 ML IV SCH (15:00)
[2021-07-10] MEDS: SODIUM BICARBONATE 50ML VIAL 50 ML in D5W 5% 1,000 ML IV SCH ×2 (17:39→18:30)
[2021-07-10] MEDS ORDERED: Glucerna 1.2 Cal 1Liter BOTTLE GT SCH (18:15)
[2021-07-10] MEDS: ENOXAPARIN SOD 120 MG/0.8 ML SYRINGE SC SCH (22:11)
[2021-07-11] VITALS (36 sets, daily range): BP systolic 90–134; BP diastolic 51–88
[2021-07-11] MEDS: InsuLIN REG 1unit/0.01ml Soln (100units/ml) SC SCH ×2 (01:09→06:55)
[2021-07-11] MEDS: SODIUM BICARBONATE 50ML VIAL 50 ML in D5W 5% 1,000 ML IV SCH ×4 (02:08→22:38)
[2021-07-11] MEDS: PHENYLEPHRINE IV 250 ML IV SCH ×3 (03:15→19:55)
[2021-07-11] MEDS: DOXYCYCLINE 100MG/250ML 250 ML IV SCH ×2 (05:35→16:00)
[2021-07-11] MEDS: CEFEPIME 1 GM in SODIUM CHL 0.9% 50 ML IV SCH (05:36)
[2021-07-11] MEDS: ACCU-CHEK COMFORT CURVE STRIP VI SCH ×4 (06:00→18:00)
[2021-07-11] MEDS: INSULIN LANTUS (GLARGINE) 1 /0.01ml (100units/ml) SC SCH ×2 (06:56→22:30)
[2021-07-11 07:25] LABS: Mean Corpuscular Volume 77.9 fL (80.0-100.0)
[2021-07-11 07:27] LABS: Hematocrit 34.8 % (41.0-53.0); Hemoglobin 10.7 g/dL (13.5-17.5); Mean Corpuscular Hemoglobin 24.1 pg (28.0-32.0); Mean Corpuscular Hgb Conc. 30.9 g/dL (32.0-36.0); Red Blood Cells 4.46 10^6/uL (4.5-5.90); Red Cell Distribution Width 17.8 % (11.8-14.3)
[2021-07-11 07:32] LABS: Albumin 1.7 g/dL (3.4-5.0); Potassium 3.6 mmol/L (3.5-5.1)
[2021-07-11 07:36] LABS: BUN/Creatinine Ratio 22.7; Bilirubin, Total 0.5 mg/dL (0.2-1.0); Total Protein 5.8 g/dL (6.4-8.2)
[2021-07-11 07:40] LABS: Basophils % (manual) 0 (0.0-2.0); Blast Cells 0; Eosinophils % (manual) 0 (0-7); Metamyelocytes % 0; Myelocytes % 0; Promyelocytes % 0; Reactive Lymphocytes 0
[2021-07-11 09:13] LABS: Urine WBC None Seen /hpf (0 - 3)
[2021-07-11 09:33] LABS: Urine Bacteria FEW /hpf (None Seen); Urine Blood 2+ /uL (Negative); Urine Specific Gravity 1.013 (1.001-1.035)
[2021-07-11 09:48] LABS: Protein, Urine 59.2 mg/dL (0.0-11.9)
[2021-07-11] MEDS: CHOLECALCIFEROL (VITD3) 2,000 UNIT CAP/TAB PO SCH (09:56)
[2021-07-11] MEDS: CITALOPRAM HYDROBR 20 MG TAB PO SCH (09:57)
[2021-07-11] MEDS: DOPamine 1600MCG/ML D5W 250 ML IV SCH (11:30)
[2021-07-11 12:25] LABS: Band Neutrophils % (manual) 1; Lymphocytes % (manual) 4 (10.0-50.0); Monocytes % (manual) 1 (0-12)
[2021-07-11] MEDS: PROPOFOL 100 ML IV SCH ×4 (15:00→23:55)
[2021-07-11] MEDS: fentaNYL Drip 2500mCg/250mlNS 250 ML IV SCH (15:00)
[2021-07-11] MEDS: MIDAZOLAM DRIP 50 mg/50mL 50 ML IV SCH (15:00)
[2021-07-11] MEDS: ROCURONIUM BROMIDE 1,000 MG in D5W 5% 150 ML IV SCH (16:30)
[2021-07-11] MEDS: NOREPINEPHRINE BITARTRATE 32 MG in SODIUM CHL 0.9% 218 ML IV SCH (20:15)
[2021-07-11] MEDS: ENOXAPARIN SOD 120 MG/0.8 ML SYRINGE SC SCH (21:59)
[2021-07-12] VITALS (57 sets, daily range): BP systolic 91–114; BP diastolic 54–71
[2021-07-12] MEDS: InsuLIN REG 1unit/0.01ml Soln (100units/ml) SC SCH ×4 (01:13→18:16)
[2021-07-12] MEDS: PHENYLEPHRINE IV 250 ML IV SCH ×3 (04:15→22:00)
[2021-07-12] MEDS: DOXYCYCLINE 100MG/250ML 250 ML IV SCH ×2 (04:34→18:30)
[2021-07-12] MEDS: CEFEPIME 1 GM in SODIUM CHL 0.9% 50 ML IV SCH (05:19)
[2021-07-12] MEDS: SODIUM BICARBONATE 50ML VIAL 50 ML in D5W 5% 1,000 ML IV SCH ×3 (05:40→22:28)
[2021-07-12 05:42] LABS: Basophils # (auto) 0 10 ^3/uL (0-0.2); Basophils % (auto) 0.1 % (0.0-2.0); Eosinophils # (auto) 0.2 10 ^3/uL (0-0.8); Monocytes # (auto) 0.7 10 ^3/uL (0-1.3); Monocytes % (auto) 3.6 % (0.0-12.0); Nucleated Red Blood Cells % 0.1 %
[2021-07-12] MEDS: ACCU-CHEK COMFORT CURVE STRIP VI SCH ×4 (05:43→18:16)
[2021-07-12 05:48] LABS: Eosinophils % (auto) 0.8 % (0.0-7.0); Hematocrit 34.6 % (41.0-53.0); Hemoglobin 10.6 g/dL (13.5-17.5); Lymphocytes # (auto) 1.6 10 ^3/uL (0.4-5.4); Lymphocytes % (auto) 8.1 % (10.0-50.0); Mean Corpuscular Hemoglobin 24.3 pg (28.0-32.0); Mean Corpuscular Hgb Conc. 30.6 g/dL (32.0-36.0); Mean Corpuscular Volume 79.3 fL (80.0-100.0); Neutrophils # (auto) 16.7 10 ^3/uL (1.6-8.6); Neutrophils % (auto) 87.4 % (37.0-80.0); Red Blood Cells 4.36 10^6/uL (4.5-5.90); Red Cell Distribution Width 17.8 % (11.8-14.3); White Blood Cell 19.1 10^3/uL (4.4-10.8)
[2021-07-12 06:03] LABS: Albumin 1.7 g/dL (3.4-5.0); BUN/Creatinine Ratio 20.7; Calcium 8.1 mg/dL (8.5-10.1); Potassium 3.7 mmol/L (3.5-5.1)
[2021-07-12 06:17] LABS: Bilirubin, Total 0.4 mg/dL (0.2-1.0); Total Protein 5.9 g/dL (6.4-8.2)
[2021-07-12] MEDS: INSULIN LANTUS (GLARGINE) 1 /0.01ml (100units/ml) SC SCH ×2 (07:03→22:00)
[2021-07-12] MEDS: PROPOFOL 100 ML IV SCH ×4 (08:28→19:00)
[2021-07-12] MEDS: CHOLECALCIFEROL (VITD3) 2,000 UNIT CAP/TAB PO SCH (09:45)
[2021-07-12] MEDS: CITALOPRAM HYDROBR 20 MG TAB PO SCH (09:45)
[2021-07-12] MEDS: ROCURONIUM BROMIDE 1,000 MG in D5W 5% 150 ML IV SCH (10:21)
[2021-07-12] MEDS: DOPamine 1600MCG/ML D5W 250 ML IV SCH (11:51)
[2021-07-12 12:53] LABS: Hepatitis C Antibody Negative (Negative)
[2021-07-12] MEDS ORDERED: FLUCONAZOLE 200MG/100ML 100 ML IV ONE (13:15)
[2021-07-12] MEDS: BUMETANIDE INJECTION 12.5 MG in GIVE UN-DILUTED 0 ML IV SCH (13:16)
[2021-07-12] MEDS: MIDAZOLAM DRIP 50 mg/50mL 50 ML IV SCH (15:00)
[2021-07-12] MEDS: fentaNYL Drip 2500mCg/250mlNS 250 ML IV SCH (15:52)
[2021-07-12] MEDS: NOREPINEPHRINE BITARTRATE 32 MG in SODIUM CHL 0.9% 218 ML IV SCH (22:30)
[2021-07-12] MEDS: ENOXAPARIN SOD 120 MG/0.8 ML SYRINGE SC SCH (22:36)
[2021-07-13] VITALS (48 sets, daily range): BP systolic 105–151; BP diastolic 57–89
[2021-07-13] MEDS: SODIUM BICARBONATE 50ML VIAL 50 ML in D5W 5% 1,000 ML IV SCH ×4 (02:30→21:07)
[2021-07-13] MEDS: ACCU-CHEK COMFORT CURVE STRIP VI SCH ×4 (02:59→18:01)
[2021-07-13] MEDS: ROCURONIUM BROMIDE 1,000 MG in D5W 5% 150 ML IV SCH ×2 (02:59→22:03)
[2021-07-13] MEDS: PHENYLEPHRINE IV 250 ML IV SCH ×3 (03:00→21:55)
[2021-07-13] MEDS: BUMETANIDE INJECTION 12.5 MG in GIVE UN-DILUTED 0 ML IV SCH ×3 (03:01→23:15)
[2021-07-13] MEDS: DOXYCYCLINE 100MG/250ML 250 ML IV SCH ×2 (03:02→17:30)
[2021-07-13] MEDS: InsuLIN REG 1unit/0.01ml Soln (100units/ml) SC SCH ×4 (04:34→18:00)
[2021-07-13 04:41] LABS: Basophils # (auto) 0 10 ^3/uL (0-0.2); Basophils % (auto) 0.1 % (0.0-2.0); Hemoglobin 9.8 g/dL (13.5-17.5); Lymphocytes # (auto) 0.7 10 ^3/uL (0.4-5.4); Lymphocytes % (auto) 3.8 % (10.0-50.0); Monocytes # (auto) 0.5 10 ^3/uL (0-1.3); Monocytes % (auto) 2.8 % (0.0-12.0)
[2021-07-13 04:47] LABS: Eosinophils # (auto) 0.1 10 ^3/uL (0-0.8); Eosinophils % (auto) 0.7 % (0.0-7.0); Hematocrit 30.8 % (41.0-53.0); Mean Corpuscular Hemoglobin 24.9 pg (28.0-32.0); Mean Corpuscular Hgb Conc. 31.8 g/dL (32.0-36.0); Mean Corpuscular Volume 78.1 fL (80.0-100.0); Neutrophils # (auto) 16.9 10 ^3/uL (1.6-8.6); Neutrophils % (auto) 92.6 % (37.0-80.0); Nucleated Red Blood Cells % 0.2 %; Red Blood Cells 3.94 10^6/uL (4.5-5.90); Red Cell Distribution Width 17.9 % (11.8-14.3); White Blood Cell 18.3 10^3/uL (4.4-10.8)
[2021-07-13 05:00] LABS: Calcium 7.7 mg/dL (8.5-10.1); Potassium 3.1 mmol/L (3.5-5.1)
[2021-07-13] MEDS: CEFEPIME 1 GM in SODIUM CHL 0.9% 50 ML IV SCH (05:55)
[2021-07-13] MEDS: INSULIN LANTUS (GLARGINE) 1 /0.01ml (100units/ml) SC SCH ×2 (05:58→22:00)
[2021-07-13] MEDS: CITALOPRAM HYDROBR 20 MG TAB PO SCH (09:07)
[2021-07-13] MEDS: CHOLECALCIFEROL (VITD3) 2,000 UNIT CAP/TAB PO SCH (09:07)
[2021-07-13] MEDS: PROPOFOL 100 ML IV SCH ×6 (09:11→19:24)
[2021-07-13] MEDS: POTASSIUM CHL 10MEQ/50ML 50 ML IV SCH ×4 (11:51→14:15)
[2021-07-13] MEDS: DOPamine 1600MCG/ML D5W 250 ML IV SCH (13:38)
[2021-07-13] MEDS: FLUCONAZOLE 200MG/100ML 100 ML IV SCH (13:41)
[2021-07-13] MEDS: MIDAZOLAM DRIP 50 mg/50mL 50 ML IV SCH (15:00)
[2021-07-13] MEDS: METOCLOPRAMIDE HCL 5MG/ml INJ 2ml VIAL IV SCH ×2 (15:51→21:09)
[2021-07-13] MEDS: fentaNYL Drip 2500mCg/250mlNS 250 ML IV SCH (16:58)
[2021-07-13] MEDS: NOREPINEPHRINE BITARTRATE 32 MG in SODIUM CHL 0.9% 218 ML IV SCH (20:00)
[2021-07-13] MEDS: ENOXAPARIN SOD 120 MG/0.8 ML SYRINGE SC SCH (21:08)
[2021-07-14] VITALS (32 sets, daily range): BP systolic 101–142; BP diastolic 51–85
[2021-07-14] MEDS: InsuLIN REG 1unit/0.01ml Soln (100units/ml) SC SCH ×4 (00:10→18:00)
[2021-07-14] MEDS: ACCU-CHEK COMFORT CURVE STRIP VI SCH ×4 (00:12→18:00)
[2021-07-14] MEDS: fentaNYL Drip 2500mCg/250mlNS 250 ML IV SCH ×2 (02:00→16:09)
[2021-07-14] MEDS: DOXYCYCLINE 100MG/250ML 250 ML IV SCH (03:00)
[2021-07-14] MEDS: PROPOFOL 100 ML IV SCH ×6 (04:53→22:31)
[2021-07-14] MEDS: CEFEPIME 1 GM in SODIUM CHL 0.9% 50 ML IV SCH (05:00)
[2021-07-14 05:29] LABS: Basophils # (auto) 0.1 10 ^3/uL (0-0.2); Basophils % (auto) 0.4 % (0.0-2.0); Eosinophils # (auto) 0.2 10 ^3/uL (0-0.8); Eosinophils % (auto) 1.2 % (0.0-7.0); Hematocrit 31.4 % (41.0-53.0); Hemoglobin 9.8 g/dL (13.5-17.5); Lymphocytes # (auto) 0.7 10 ^3/uL (0.4-5.4); Lymphocytes % (auto) 3.3 % (10.0-50.0); Mean Corpuscular Hemoglobin 24.2 pg (28.0-32.0); Mean Corpuscular Hgb Conc. 31.1 g/dL (32.0-36.0); Mean Corpuscular Volume 77.9 fL (80.0-100.0); Monocytes # (auto) 0.9 10 ^3/uL (0-1.3); Neutrophils # (auto) 19.4 10 ^3/uL (1.6-8.6); Neutrophils % (auto) 91.1 % (37.0-80.0); Red Blood Cells 4.03 10^6/uL (4.5-5.90); Red Cell Distribution Width 17.5 % (11.8-14.3); White Blood Cell 21.2 10^3/uL (4.4-10.8)
[2021-07-14 05:41] LABS: Potassium 3.1 mmol/L (3.5-5.1)
[2021-07-14 05:55] LABS: BUN/Creatinine Ratio 21.6
[2021-07-14] MEDS: INSULIN LANTUS (GLARGINE) 1 /0.01ml (100units/ml) SC SCH ×2 (06:00→22:00)
[2021-07-14] MEDS: METOCLOPRAMIDE HCL 5MG/ml INJ 2ml VIAL IV SCH ×3 (06:10→22:00)
[2021-07-14] MEDS: SODIUM BICARBONATE 50ML VIAL 50 ML in D5W 5% 1,000 ML IV SCH ×2 (06:11→11:07)
[2021-07-14] MEDS: PHENYLEPHRINE IV 250 ML IV SCH ×3 (06:15→22:55)
[2021-07-14] MEDS: ACETAMINOPHEN 500 MG TAB PO PRN (06:43)
[2021-07-14] MEDS: FLUCONAZOLE 200MG/100ML 100 ML IV SCH (09:11)
[2021-07-14] MEDS: CITALOPRAM HYDROBR 20 MG TAB PO SCH (09:12)
[2021-07-14] MEDS: CHOLECALCIFEROL (VITD3) 2,000 UNIT CAP/TAB PO SCH (09:12)
[2021-07-14] MEDS: DOPamine 1600MCG/ML D5W 250 ML IV SCH ×2 (11:00→16:19)
[2021-07-14] MEDS: POTASSIUM CHL 10MEQ/50ML 50 ML IV SCH ×4 (11:04→14:05)
[2021-07-14] MEDS: MIDAZOLAM DRIP 50 mg/50mL 50 ML IV SCH (15:00)
[2021-07-14] MEDS: ROCURONIUM BROMIDE 1,000 MG in D5W 5% 150 ML IV SCH (15:54)
[2021-07-14] MEDS: BUMETANIDE 2.5mg/10ml (0.25 mg/ml) INJ IV SCH (18:00)
[2021-07-14] MEDS: NOREPINEPHRINE BITARTRATE 32 MG in SODIUM CHL 0.9% 218 ML IV SCH (20:00)
[2021-07-14] MEDS: ENOXAPARIN SOD 120 MG/0.8 ML SYRINGE SC SCH (22:00)
[2021-07-15] VITALS (30 sets, daily range): BP systolic 99–118; BP diastolic 49–72
[2021-07-15] MEDS: PROPOFOL 100 ML IV SCH ×3 (03:24→08:56)
[2021-07-15] MEDS: fentaNYL Drip 2500mCg/250mlNS 250 ML IV SCH ×2 (03:27→20:24)
[2021-07-15] MEDS: BUMETANIDE 2.5mg/10ml (0.25 mg/ml) INJ IV SCH ×2 (05:45→18:00)
[2021-07-15] MEDS: METOCLOPRAMIDE HCL 5MG/ml INJ 2ml VIAL IV SCH ×3 (05:45→20:23)
[2021-07-15] MEDS: InsuLIN REG 1unit/0.01ml Soln (100units/ml) SC SCH ×5 (06:00→23:52)
[2021-07-15] MEDS: ACCU-CHEK COMFORT CURVE STRIP VI SCH ×5 (06:08→23:52)
[2021-07-15] MEDS: INSULIN LANTUS (GLARGINE) 1 /0.01ml (100units/ml) SC SCH ×2 (06:08→22:00)
[2021-07-15 06:39] LABS: Eosinophils # (auto) 0.1 10 ^3/uL (0-0.8); Hemoglobin 9.3 g/dL (13.5-17.5); Lymphocytes # (auto) 0.6 10 ^3/uL (0.4-5.4); Mean Corpuscular Volume 77.5 fL (80.0-100.0); Monocytes # (auto) 0.9 10 ^3/uL (0-1.3); Neutrophils % (auto) 90.8 % (37.0-80.0)
[2021-07-15 06:42] LABS: Basophils # (auto) 0 10 ^3/uL (0-0.2); Basophils % (auto) 0.1 % (0.0-2.0); Eosinophils % (auto) 0.7 % (0.0-7.0); Hematocrit 29.2 % (41.0-53.0); Lymphocytes % (auto) 3.3 % (10.0-50.0); Mean Corpuscular Hemoglobin 24.8 pg (28.0-32.0); Monocytes % (auto) 5.1 % (0.0-12.0); Neutrophils # (auto) 16.4 10 ^3/uL (1.6-8.6); Nucleated Red Blood Cells % 0.1 %; Red Blood Cells 3.76 10^6/uL (4.5-5.90); Red Cell Distribution Width 17.2 % (11.8-14.3); White Blood Cell 18.1 10^3/uL (4.4-10.8)
[2021-07-15] MEDS: PHENYLEPHRINE IV 250 ML IV SCH ×2 (07:15→15:35)
[2021-07-15 07:18] LABS: Potassium 3.5 mmol/L (3.5-5.1)
[2021-07-15 07:40] LABS: BUN/Creatinine Ratio 20.2
[2021-07-15] MEDS: DOPamine 1600MCG/ML D5W 250 ML IV SCH (08:55)
[2021-07-15] MEDS: ROCURONIUM BROMIDE 1,000 MG in D5W 5% 150 ML IV SCH (09:45)
[2021-07-15] MEDS: CITALOPRAM HYDROBR 20 MG TAB PO SCH (10:00)
[2021-07-15] MEDS: FLUCONAZOLE 200MG/100ML 100 ML IV SCH (10:00)
[2021-07-15] MEDS: CHOLECALCIFEROL (VITD3) 2,000 UNIT CAP/TAB PO SCH (10:00)
[2021-07-15] MEDS: MIDAZOLAM DRIP 50 mg/50mL 50 ML IV SCH (15:00)
[2021-07-15] MEDS: ENOXAPARIN SOD 120 MG/0.8 ML SYRINGE SC SCH (20:24)
[2021-07-16] VITALS (30 sets, daily range): BP systolic 95–113; BP diastolic 58–71
[2021-07-16] MEDS: BUMETANIDE 2.5mg/10ml (0.25 mg/ml) INJ IV SCH ×2 (05:21→17:49)
[2021-07-16] MEDS: METOCLOPRAMIDE HCL 5MG/ml INJ 2ml VIAL IV SCH ×3 (05:21→21:51)
[2021-07-16] MEDS: InsuLIN REG 1unit/0.01ml Soln (100units/ml) SC SCH ×4 (05:40→23:50)
[2021-07-16] MEDS: ACCU-CHEK COMFORT CURVE STRIP VI SCH ×4 (05:41→23:51)
[2021-07-16] MEDS: NOREPINEPHRINE BITARTRATE 32 MG in SODIUM CHL 0.9% 218 ML IV SCH (07:00)
[2021-07-16] MEDS: PHENYLEPHRINE IV 250 ML IV SCH ×3 (07:00→16:35)
[2021-07-16] MEDS: INSULIN LANTUS (GLARGINE) 1 /0.01ml (100units/ml) SC SCH (07:00)
[2021-07-16 07:12] LABS: Mean Corpuscular Hemoglobin 24.9 pg (28.0-32.0); Mean Corpuscular Hgb Conc. 32.2 g/dL (32.0-36.0); Mean Corpuscular Volume 77.2 fL (80.0-100.0); Red Blood Cells 3.62 10^6/uL (4.5-5.90); Red Cell Distribution Width 17.7 % (11.8-14.3); White Blood Cell 15.4 10^3/uL (4.4-10.8)
[2021-07-16 07:16] LABS: Band Neutrophils % (manual) 0; Basophils % (manual) 0 (0.0-2.0); Blast Cells 0; Eosinophils % (manual) 0 (0-7); Metamyelocytes % 0; Myelocytes % 0; Promyelocytes % 0; Reactive Lymphocytes 0
[2021-07-16 07:35] LABS: BUN/Creatinine Ratio 20.6
[2021-07-16 08:05] LABS: Lymphocytes % (manual) 3 (10.0-50.0); Monocytes % (manual) 8 (0-12)
[2021-07-16] MEDS: CITALOPRAM HYDROBR 20 MG TAB PO SCH (09:33)
[2021-07-16] MEDS: FLUCONAZOLE 200MG/100ML 100 ML IV SCH (09:33)
[2021-07-16] MEDS: CHOLECALCIFEROL (VITD3) 2,000 UNIT CAP/TAB PO SCH (09:33)
[2021-07-16] MEDS: PROPOFOL 100 ML IV SCH ×4 (10:19→19:04)
[2021-07-16] MEDS: fentaNYL Drip 2500mCg/250mlNS 250 ML IV SCH (14:23)
[2021-07-16] MEDS: MIDAZOLAM DRIP 50 mg/50mL 50 ML IV SCH (15:00)
[2021-07-16] MEDS ORDERED: DEXTROSE (50%) 50ML SYRG IV PRN (18:45)
[2021-07-17] VITALS (19 sets, daily range): BP systolic 92–119; BP diastolic 50–64
[2021-07-17] MEDS: PROPOFOL 100 ML IV SCH ×6 (02:27→16:46)
[2021-07-17 03:52] LABS: Hemoglobin 8.7 g/dL (13.5-17.5)
[2021-07-17 03:55] LABS: Hematocrit 26.9 % (41.0-53.0); Mean Corpuscular Hemoglobin 24.7 pg (28.0-32.0); Mean Corpuscular Hgb Conc. 32.2 g/dL (32.0-36.0); Mean Corpuscular Volume 76.7 fL (80.0-100.0); Red Blood Cells 3.51 10^6/uL (4.5-5.90); Red Cell Distribution Width 17.8 % (11.8-14.3)
[2021-07-17 04:08] LABS: Calcium 7.4 mg/dL (8.5-10.1); Potassium 4.6 mmol/L (3.5-5.1)
[2021-07-17 04:16] LABS: BUN/Creatinine Ratio 19.5
[2021-07-17 04:27] LABS: Basophils % (manual) 0 (0.0-2.0); Blast Cells 0; Eosinophils % (manual) 0 (0-7); Metamyelocytes % 0; Myelocytes % 0; Promyelocytes % 0; Reactive Lymphocytes 0
[2021-07-17 05:38] LABS: Band Neutrophils % (manual) 6; Lymphocytes % (manual) 4 (10.0-50.0); Monocytes % (manual) 4 (0-12)
[2021-07-17] MEDS: InsuLIN REG 1unit/0.01ml Soln (100units/ml) SC SCH ×3 (06:00→18:00)
[2021-07-17] MEDS: METOCLOPRAMIDE HCL 5MG/ml INJ 2ml VIAL IV SCH ×3 (06:00→22:38)
[2021-07-17] MEDS: ACCU-CHEK COMFORT CURVE STRIP VI SCH ×3 (06:00→18:00)
[2021-07-17] MEDS ORDERED: metOLazone 5 MG TAB GT ONE (10:00)
[2021-07-17] MEDS: FLUCONAZOLE 200MG/100ML 100 ML IV SCH (11:00)
[2021-07-17] MEDS: ENOXAPARIN SOD 30 MG/0.3 ML SYRINGE SC SCH (11:01)
[2021-07-17] MEDS: FUROSEMIDE INJECTION 100 MG in SODIUM CHL 0.9% 100 ML IV SCH ×3 (11:07→17:29)
[2021-07-17] MEDS: fentaNYL Drip 2500mCg/250mlNS 250 ML IV SCH ×2 (17:11)
[2021-07-17] MEDS: PANTOPRAZOLE 40 MG/10 ML VIAL INJ IV SCH (22:37)
[2021-07-17] MEDS: SUCRALFATE 1 GM/10 ML ORAL SUSP PO SCH (22:38)
[2021-07-18] VITALS (22 sets, daily range): BP systolic 95–111; BP diastolic 53–64
[2021-07-18] MEDS: ACCU-CHEK COMFORT CURVE STRIP VI SCH ×3 (00:18→12:00)
[2021-07-18] MEDS: FUROSEMIDE INJECTION 100 MG in SODIUM CHL 0.9% 100 ML IV SCH ×3 (00:20→11:09)
[2021-07-18 03:54] LABS: Lymphocytes # (auto) 0.3 10 ^3/uL (0.4-5.4); Nucleated Red Blood Cells % 0.2 %
[2021-07-18 03:56] LABS: Basophils # (auto) 0.1 10 ^3/uL (0-0.2); Basophils % (auto) 0.4 % (0.0-2.0); Eosinophils # (auto) 0.1 10 ^3/uL (0-0.8); Eosinophils % (auto) 0.4 % (0.0-7.0); Hematocrit 27.3 % (41.0-53.0); Hemoglobin 8.7 g/dL (13.5-17.5); Lymphocytes % (auto) 1.7 % (10.0-50.0); Mean Corpuscular Hemoglobin 24.6 pg (28.0-32.0); Mean Corpuscular Volume 76.9 fL (80.0-100.0); Monocytes # (auto) 1.2 10 ^3/uL (0-1.3); Monocytes % (auto) 7.2 % (0.0-12.0); Neutrophils # (auto) 15.1 10 ^3/uL (1.6-8.6); Neutrophils % (auto) 90.3 % (37.0-80.0); Red Blood Cells 3.56 10^6/uL (4.5-5.90); Red Cell Distribution Width 17.8 % (11.8-14.3); White Blood Cell 16.7 10^3/uL (4.4-10.8)
[2021-07-18 04:16] LABS: Calcium 6.6 mg/dL (8.5-10.1); Potassium 5.5 mmol/L (3.5-5.1)
[2021-07-18] MEDS: METOCLOPRAMIDE HCL 5MG/ml INJ 2ml VIAL IV SCH ×2 (05:18→15:05)
[2021-07-18] MEDS: PROPOFOL 100 ML IV SCH ×5 (05:19→15:07)
[2021-07-18] MEDS: InsuLIN REG 1unit/0.01ml Soln (100units/ml) SC SCH ×3 (06:00→12:09)
[2021-07-18] MEDS: SUCRALFATE 1 GM/10 ML ORAL SUSP PO SCH (06:12)
[2021-07-18] MEDS: fentaNYL Drip 2500mCg/250mlNS 250 ML IV SCH (06:44)
[2021-07-18] MEDS: NOREPINEPHRINE BITARTRATE 32 MG in SODIUM CHL 0.9% 218 ML IV SCH (08:44)
[2021-07-18] MEDS: ENOXAPARIN SOD 30 MG/0.3 ML SYRINGE SC SCH (10:00)
[2021-07-18] MEDS: FLUCONAZOLE 200MG/100ML 100 ML IV SCH (10:45)
[2021-07-18] MEDS: PANTOPRAZOLE 40 MG/10 ML VIAL INJ IV SCH (10:45)
[2021-07-18] MEDS ORDERED: HEPARIN 1,000 UNITS/ml 1ML VIAL ONE (13:53)
[2021-07-18] MEDS ORDERED: EPINEPHrine HCL 1 MG/10 ML SYRG IV ONE (21:23)
[2021-07-18] MEDS ORDERED: SODIUM BICARBONATE 8.4% INJ 50ML SYRINGE IV ONE (21:23)
[2021-07-19] MEDS ORDERED: SODIUM CHL 0.9% 1000 ML BAG XX ONE (07:00)
[2021-07-19] MEDS ORDERED: EPOETIN ALFA-EPBX 10,000 UNIT/1ML VIAL SC SCH (21:00)
== END 2021-07-18 21:24 | DRG 870 ==
LOC: EDBD 13:13 → ER 13:13 → TELE 18:03 → TELE-EAST 22:41 → DOU IN ICU 07-09 12:45 → ICU WEST 07-10 05:43
PROVIDERS: ADMIT Hospitalist; ATTEND Internal Medicine
PROC: 02HV33Z Insertion of Infusion Device into Superior Vena Cava, Percutaneous Approach (ICD-10-PCS; 2021-07-02)
PROC: 05HC33Z Insertion of Infusion Device into Left Basilic Vein, Percutaneous Approach (ICD-10-PCS; 2021-07-07)
PROC: B54NZZA Ultrasonography of Left Upper Extremity Veins, Guidance (ICD-10-PCS; 2021-07-07)
PROC: 5A1955Z Respiratory Ventilation, Greater than 96 Consecutive Hours (ICD-10-PCS; principal; 2021-07-09)
PROC: 0BH17EZ Insertion of Endotracheal Airway into Trachea, Via Natural or Artificial Opening (ICD-10-PCS; 2021-07-09)
PROC: XW033E5 Introduction of Remdesivir Anti-infective into Peripheral Vein, Percutaneous Approach, New Technology Group 5 (ICD-10-PCS; 2021-07-09)
PROC: 06HN33Z Insertion of Infusion Device into Left Femoral Vein, Percutaneous Approach (ICD-10-PCS; 2021-07-18)
DX: A41.9 Sepsis, unspecified organism (principal); U07.1 COVID-19; J12.82 Pneumonia due to coronavirus disease 2019; I50.33 Acute on chronic diastolic (congestive) heart failure; J96.01 Acute respiratory failure with hypoxia; N17.0 Acute kidney failure with tubular necrosis; G93.41 Metabolic encephalopathy; D68.4 Acquired coagulation factor deficiency; E87.0 Hyperosmolality and hypernatremia; E87.1 Hypo-osmolality and hyponatremia; R57.9 Shock, unspecified; Z99.11 Dependence on respirator [ventilator] status; G93.1 Anoxic brain damage, not elsewhere classified; I13.0 Hypertensive heart and chronic kidney disease with heart failure and stage 1 through stage 4 chronic kidney disease, or unspecified chronic kidney disease; J44.0 Chronic obstructive pulmonary disease with (acute) lower respiratory infection; E66.01 Morbid (severe) obesity due to excess calories; E78.5 Hyperlipidemia, unspecified; E87.6 Hypokalemia; G40.909 Epilepsy, unspecified, not intractable, without status epilepticus; I48.0 Paroxysmal atrial fibrillation; E86.0 Dehydration; F41.9 Anxiety disorder, unspecified; Z68.33 Body mass index [BMI] 33.0-33.9, adult; Z66 Do not resuscitate; E11.22 Type 2 diabetes mellitus with diabetic chronic kidney disease; E11.40 Type 2 diabetes mellitus with diabetic neuropathy, unspecified; I25.10 Atherosclerotic heart disease of native coronary artery without angina pectoris; E11.65 Type 2 diabetes mellitus with hyperglycemia; D64.9 Anemia, unspecified; N18.31 Chronic kidney disease, stage 3a; D89.839 Cytokine release syndrome, grade unspecified; F79 Unspecified intellectual disabilities; T45.515A Adverse effect of anticoagulants, initial encounter; Y92.89 Other specified places as the place of occurrence of the external cause; Z79.01 Long term (current) use of anticoagulants; Z82.49 Family history of ischemic heart disease and other diseases of the circulatory system; Z82.3 Family history of stroke; Z83.3 Family history of diabetes mellitus; Z79.899 Other long term (current) drug therapy; Z88.8 Allergy status to other drugs, medicaments and biological substances; Z91.030 Bee allergy status; Z86.73 Personal history of transient ischemic attack (TIA), and cerebral infarction without residual deficits; R77.8 Other specified abnormalities of plasma proteins
CPT/HCPCS: 36415; 36600; 70450; 71045; 76775; 80048; 80053; 81001; 82306; 82570; 82728; 82805; 82962; 83036; 83605; 83615; 83735; 83880; 83970; 84100; 84156; 84300; 84443; 84484; 84550; 85007; 85025; 85027; 85379; 85610; 85730; 86141; 86803; 87040; 87070; 87077; 87081; 87086; 87205; 87340; 87426; 93005; 93970; 94002; 94003; 94640; 96365; 96366; 96375; 99291; A4565; C9113; G0378; J0330; J0696; J1100; J1450; J1815; J2250; J2704; J3430; J3490; J7060